=== PATIENT | male | born 1990 | race Caucasian/White ===

== ENCOUNTER 2022-02-02 15:37 | Emergency (ER) | payer OTHER, SELFPAY ==
--- NOTE | ~2022-02-02 | XR_ITS ---
EXAMINATION: XR LUMBOSACRAL SPINE CLINICAL INFORMATION: Pain COMPARISON: None TECHNIQUE: Three views of the lumbosacral spine. FINDINGS: The vertebral bodies and posterior elements are normal. The disc spaces are preserved and the vertebral alignment is normal. The paraspinal soft tissues are normal. XR/XR lumbar spine 2-3V IMPRESSION: Unremarkable examination.
[2022-02-02 15:54] VITALS: BP 136/73; PULSE 69; RESP 16; TEMP 36.6; O2SAT 98; BMI 28.0
--- NOTE | 2022-02-02 18:04 | ED.BACK ---
HPI - Back Pain/Injury General Chief Complaint: Back Pain/Injury Stated Complaint: back pain Time Seen by Provider: 02/02/22 18:04 Source: patient Mode of arrival: ambulatory Limitations: no limitations History of Present Illness HPI Narrative: 31 y/o female with history of low back pain, history of slipped discs in his low back who presents to the ER with 8 days of lower back pain, left more than right. He states the pain started after lifting at have a 5 gal bucket of vanc while he was at work and tipping it into a machine. The pain is in the left lower back, radiates into the left buttock and down the 1st portion of the left leg. It is worse with bending and movement. He has been taking ibuprofen and using icy Hot with minimal relief. He reports a history of similar pain a few years ago that was due to a slipped disc. He states he got a shot of the medication and some muscle relaxers and improved after few days of rest. He denies any numbness or tingling in his legs. No weakness. No bowel or bladder incontinence. MD elicited complaint: back pain Pertinent past history: prior back pain Onset (ago): day(s) (8) Timing: constant Severity: moderate Pain scale (0-10): 6 Similar Symptoms Previously: Yes Quality: aching and spasming Location: left lower back Radiation: buttocks and left upper leg Exacerbating factors: movement and walking Relieving factors: immobilization and sitting upright Context: while lifting and turning/twisting Associated symptoms: denies other symptoms Treatments prior to arrival: NSAIDS Work related injury: Yes Related Data Previous Rx's Medication Instructions Recorded cyclobenzaprine 10 mg tablet 10 mg PO TID PRN #14 tab 02/02/22 naproxen 500 mg tablet 500 mg PO BID PRN #20 tab 02/02/22 Allergies Allergy/AdvReac Type Severity Reaction Status Date / Time No Known Allergies Allergy Verified 02/02/22 15:57 Review of Systems Review of Systems: Constitutional: No Fever, No Chills Cardiovascular: No Chest Pain, No SOB Gastrointestinal: No Nausea, No Vomiting, No abdominal Pain Genitourinary: No Dysuria, No Urinary Frequency, No Hematuria Musculoskeletal: + joint pain, + Myalgias Skin: No Skin Lesions, No rash Neuro: No Weakness, No Numbness Psych: No Anxiety/Panic, No Depression Heme/Lymph: No Lymphadenopathy PMFSH Past Medical History Medical History (Updated 02/02/22 @ 18:25 by ROBERTO Jonas) No known health problems Social History Social History Advance Directives: No Advance Directives Information Provided: No Physical Exam Vital Signs: Vital Signs: Last Vital Signs Temp 97.9 F 02/02/22 15:54 Pulse 69 02/02/22 15:54 Resp 16 02/02/22 15:54 BP 136/73 02/02/22 15:54 Pulse Ox 98 02/02/22 15:54 BMI result Body Mass Index 28.0 Appearance: Alert. Oriented X3. No acute distress. HEENT: Normal external inspection Neck: Normal inspection. Neck supple. CVS: Normal heart rate and rhythm. Pulses normal. Respiratory: No respiratory distress. Breath sounds normal. Back: Normal inspection, tenderness of the soft tissues of the upper, middle, lower lumbar areas with palpable spasm. No midline tenderness. Positive straight leg raise test on the right. Positive SI joint tenderness Skin: Skin warm and dry. Normal skin color. Normal skin turgor. No rashes. Extremities: No lower extremity edema. Neuro: Oriented X 3. No motor deficit. No sensory deficit. Slow gait slow but steady Course Course Course Narrative: 31 y/o male with history of low back pain presents to the ER with 8 days of worsening LBP. No red flag symptoms of LBP. Will plan to start muscle relaxers and naproxen. Work note provided per request with limits on heavy lifting for the next week to allow patient to recover. He will follow up with for connection for release back to work. Critical Care Time Critical Care Time Critical Care Time: No Discharge Plan Discharge Clinical Impression: Low back pain Patient Disposition: Home, Self-Care Instructions: Acute Low Back Pain (ED), Lower Back Exercises (ED) Additional Instructions: No bending, lifting or twisting. Use ice several times per day for 20 minutes at a time for the next 48 hours and then change to heat. Take medications as prescribed to help with pain and discomfort. Follow up with your Primary Care Doctor this week. If your pain worsens, if you develop new numbness, tingling, weakness, loss of function or incontinence call 911 or come back to the ER right away for evaluation. Prescriptions: New cyclobenzaprine 10 mg tablet 10 mg PO TID PRN (Reason: muscle spasm) Qty: 14 0RF naproxen 500 mg tablet 500 mg PO BID PRN (Reason: pain) Qty: 20 0RF Referrals: [facility] [Provider Group] - 1 week (Follow-up low back pain) Stand Alone Forms: Work/School Release
[2022-02-02] MEDS: Ketorolac Tromethamine 30 MG/ML VIAL IM (18:39)
== END 2022-02-02 18:44 | disposition home or self-care (01) ==
PROVIDERS: Emergency Provider Emergency Medicine
DX: M54.50 Low back pain, unspecified (principal); Z79.899 Other long term (current) drug therapy
CPT/HCPCS: 72100; 96372; 99284; J1885

== ENCOUNTER 2022-02-06 11:47 | Emergency (ER) | payer OTHER, SELFPAY ==
[2022-02-06 12:29] VITALS: BP 133/78; PULSE 78; RESP 17; TEMP 36.6; O2SAT 98; BMI 28.1
[2022-02-06] MEDS: Ketorolac Tromethamine 30 MG/ML VIAL IM (12:47)
[2022-02-06] MEDS: oxyCODONE HCl Immed Release 5 MG TABLET PO (12:47)
[2022-02-06] MEDS: Ondansetron ODT 4 MG TAB.RAPDIS TRANSLINGU (12:48)
--- NOTE | 2022-02-06 12:56 | ED_ITS ---
HPI - Back Pain/Injury General Chief Complaint: Back Pain/Injury Stated Complaint: Back pain Time Seen by Provider: 02/06/22 12:25 Source: patient Mode of arrival: ambulatory History of Present Illness HPI Narrative: 31-year-old male with a past medical history of low back pain, herniated disc, presenting to the ED complaining of about 1 week of low back pain > right radiating down bilateral lower extremities. Admits does a lot of heavy lifting at work, however denies direct injury/trauma or fall. Admits was evaluated in our ED on 02/02/2022, had x-rays are unremarkable, taking Flexeril/naproxen without relief, also saw a chiropractor who recommended an MRI. Reports pain worse with bending/ambulation. Reports associated paresthesias down RLE. Denies weakness, urinary incontinence, urinary retention, fever MD elicited complaint: back pain Onset (ago): week(s) Related Data Previous Rx's Medication Instructions Recorded cyclobenzaprine 10 mg tablet 10 mg PO TID PRN #14 tab 02/02/22 naproxen 500 mg tablet 500 mg PO BID PRN #20 tab 02/02/22 hydrocodone 5 mg-acetaminophen 325 1 tab PO Q8H PRN 3 Days #9 tab 02/06/22 mg tablet lidocaine 5 % topical patch 1 patch TOPICAL DAILY PRN #30 ea 02/06/22 (Lidoderm) MDD remove after 12 hours prednisone 20 mg tablet 40 mg PO DAILY 5 Days #10 tab 02/06/22 Allergies Allergy/AdvReac Type Severity Reaction Status Date / Time No Known Allergies Allergy Verified 02/02/22 15:57 Review of Systems Review of Systems: Constitutional: No Fever, No Chills ENT/Mouth: No Ear Pain, No Nasal Congestion, No sore throat, No Rhinorrhea, No Swallowing Difficulty Cardiovascular: No Chest Pain, No SOB Respiratory: No Cough, No Sputum, No Wheezing Gastrointestinal: No Nausea, No Vomiting, No Diarrhea, No Constipation, No Abdominal pain Genitourinary:, No Dysuria, No Urinary Frequency, No Hematuria, No Urinary Incontinence/retention, No Urgency, No Flank Pain Musculoskeletal: + joint pain, No Myalgias, No Joint Swelling Skin: No Skin Lesions, No rash Neuro: No Weakness, No Numbness, + Paresthesias Yes all other systems are reviewed and are negative Neurologic: Denies Sensory deficit (Neuro) PMFSH Past Medical History Attestation statement: The following information was validated with the patient. Medical History No known health problems Social History Social History Advance Directives: No Physical Exam Vital Signs: Vital Signs: Last Vital Signs Temp 97.8 F 02/06/22 12:29 Pulse 78 02/06/22 12:29 Resp 17 02/06/22 12:29 BP 133/78 02/06/22 12:29 Pulse Ox 98 02/06/22 12:29 BMI result Body Mass Index 28.1 Const: General: cooperative, healthy appearing and no acute distress Orientation/consciousness: patient oriented x3 Limitations: no limitations HEENT: Head: Yes normal to inspection and Yes atraumatic Ears: hearing grossly normal bilaterally General nose exam: Normal external nose present Face and sinus: Yes normal facial exam Eyes: General: appearance normal, both eyes and all related structures EOM: EOMs intact bilaterally Neck: Neck: Yes normal visual inspection and Yes no meningeal signs Resp: Effort & Inspection: normal respiratory effort and no respiratory distress Cardio: Rate: regular rate Heart sounds: S1 normal heart sound present and S2 normal heart sound present Peripheral pulses: dorsalis pedis present : General: Yes no CVA tenderness Back/Spine/Pelvis: Other: No midline thoracic/lumbar spinous tenderness/step-off or deformity. + bilateral lower lumbar paraspinal and right-sided lumbar MSK tenderness to palpation reproducing subjective complaint. Visible muscle spasming/mild swelling to lumbar region Back: no CVA tenderness Skin: Rashes: no rashes Wounds: no wounds Neuro: Other: Strength intact throughout. Ambulating with steady gait. No saddle anesthesia. General: patient oriented x3, gait normal, tone normal, moves all extremities, no meningeal signs and no focal motor deficits Gait exam (Neuro): Normal gait present Motor exam (neuro): 5/5 motor strength present throughout Sensory Exam: No Sensory deficit (Neuro) Extrem: General: Yes normal to inspection Course Course Course Narrative: -patient reports symptomatic improvement after p.o. oxycodone, IM Toradol, & PO Flexeril MDM - Back Pain/Injury MDM Narrative Medical decision making narrative: 31-year-old male with a past medical history of low back pain, herniated disc, presenting to the ED complaining of about 1 week of low back pain > right radiating down bilateral lower extremities. On exam vital signs stable, NAD/nontoxic, no midline spinous tenderness throat, no red flag symptoms, concern for herniated disc vs MSK pain/spasming versus strain. Low concern for cauda equina/cord compression or epidural abscess Discussed with patient he needs to establish care with PCP/neuro surgery and likely needs MRI outpatient however cannot get done emergently today Will give sx tx and discussed worrisome signs and symptoms and strict return precautions Differential Diagnosis Differential diagnosis: Likely lumbar radiculopathy, sciatica and strain of lumbar region Medical Records Attestation: I reviewed the patient's medical records. Lab Data Attestation: I reviewed the patient's lab results. Discharge Plan Discharge Clinical Impression: Back pain Patient Disposition: Home, Self-Care Instructions: Acute Low Back Pain (ED) Additional Instructions: [facility] [address] [place] [address] [phone] Continue taking previously prescribed naproxen and Flexeril. In addition [place] is an opiate pain medication, take only when pain is severe for the next 3 days. Be aware [place] has Tylenol mixed in do not exceed 4 g of Tylenol in 1 day Additionally prednisone is a steroid which will help with swelling You need to establish care with a primary care doctor as well as Neurosurgery. You likely need an MRI. Lidoderm patches are numbing patches, apply to painful area In addition take Tylenol at home If symptoms persist or worsen, pain becomes unbearable, you developed urinary retention or incontinence, or weakness return to the ED Prescriptions: New hydrocodone-acetaminophen 5-325 mg tablet 1 tab PO Q8H PRN (Reason: pain, severe) 3 Days Qty: 9 0RF prednisone 20 mg tablet 40 mg PO DAILY 5 Days Qty: 10 0RF lidocaine [Lidoderm] 5 % adhesive patch,medicated 1 patch topical DAILY MDD remove after 12 hours PRN (Reason: pain) Qty: 30 0RF Rx Instructions: leave on most painful area for up to 12 hrs No Action cyclobenzaprine 10 mg tablet 10 mg PO TID PRN (Reason: muscle spasm) Qty: 14 0RF naproxen 500 mg tablet 500 mg PO BID PRN (Reason: pain) Qty: 20 0RF Referrals: Lebron Wolff MD [Physician] - 2 days Amberly Poe MD [Physician] - Stand Alone Forms: Work/School Release
--- NOTE | 2022-02-06 13:29 | PC.NURSE ---
PT MEDICATED WITH 5MG OXYCODONE AND TORADOL 30MG FOR C/O 05/26 LEFT BACK/SIDE PAIN. AUTHOR WENT TO REVIEW DISCHARGE PAPERWORK WITH PT, AND AT BEDSIDE, PT STATED TO AUTHOR I CAN'T LIFT MY LEG, THIS FEELS LIKE IT'S GETTING WORSE , PT INDICATING LEFT LEG BEING DIFFICULT TO MOVE. ROBERTO BARRIGA AWARE. TM
[2022-02-06] MEDS: Cyclobenzaprine HCl 10 MG TABLET PO (13:42)
== END 2022-02-06 14:48 | disposition home or self-care (01) ==
PROVIDERS: Emergency Provider Emergency Medicine
DX: M54.50 Low back pain, unspecified (principal); M79.605 Pain in left leg; M79.604 Pain in right leg; R20.2 Paresthesia of skin; Z79.899 Other long term (current) drug therapy
CPT/HCPCS: 96372; 99283; 99284; J1885

== ENCOUNTER → 2022-02-12 09:35 | Outpatient (BNVA) | payer OTHER, SELFPAY | PROVIDERS: Visit Provider Internal Medicine | DX: M54.9 Dorsalgia, unspecified (principal); M79.662 Pain in left lower leg; M79.661 Pain in right lower leg | CPT/HCPCS: 99203 ==

== ENCOUNTER → 2022-02-16 11:25 | Outpatient (BNVA) | payer OTHER, SELFPAY | PROVIDERS: Visit Provider Internal Medicine | DX: M54.50 Low back pain, unspecified (principal) | CPT/HCPCS: 99213 ==

== ENCOUNTER → 2022-02-22 09:46 | Outpatient (BNVA) | payer OTHER, SELFPAY | PROVIDERS: Visit Provider Internal Medicine | DX: M54.9 Dorsalgia, unspecified (principal); M79.605 Pain in left leg | CPT/HCPCS: 99213 ==

== ENCOUNTER 2022-02-22 19:05 | Outpatient (REF) | payer OTHER, SELFPAY ==
--- NOTE | ~2022-02-22 | MR_ITS ---
EXAMINATION: MR LUMBAR SPINE WITHOUT CONTRAST CLINICAL INFORMATION: 31-year-old with low back and bilateral leg pain. Pushing injury. COMPARISON: None TECHNIQUE: MRI of the lumbar spine was obtained using routine sequences without contrast. FINDINGS: Coronal Alignment: Normal. Sagittal Alignment: Straightening of the lumbar spine noted in the sagittal plane. No spondylolisthesis or spondylolysis. Lumbosacral Junction: Normal. Five nonrib-bearing lumbar vertebral bodies. Vertebral Bodies: Normal height. Disc Spaces and Endplates: Intervertebral disc space heights and signal are well maintained throughout the lumbar spine. Spinal Canal: No abnormal developmental findings. Bone Marrow: No significant marrow-replacing process or bone marrow edema. Conus Medullaris: Terminates at L1. Morphology and signal is normal. Intradural Nerve Roots: Within normal limits. L5-S1: Mild broad-based central disc herniation with mild indentation of the ventral thecal sac without neural impingement. Disc herniation contacts the origins of the S1 nerve root sleeves bilaterally. No significant facet arthrosis, canal or neural foraminal stenosis. L4-L5: Minor annular bulging with no significant canal or neural foraminal stenosis. Minor facet arthrosis noted on the left. L3-L4: Minor annular bulging. No facet arthrosis, canal or neural foraminal stenosis. L2-L3: Normal disc contour. No facet arthrosis, canal or neural foraminal stenosis. L1-L2: Normal disc contour. No facet arthrosis, canal or neural foraminal stenosis. Paraspinal/Retroperitoneal: The paravertebral soft tissues appear unremarkable. MR/MR lumbar spine wo con IMPRESSION: 1. Broad-based central disc protrusion at L5-S1 which contacts the origins of the S1 nerve root sleeves bilaterally without nerve root compression or displacement and no significant canal or neural foraminal stenosis. 2. Minor annular bulging at L4-L5 and L3-L4 with mild facet arthrosis on the left at L4-L5 without canal or neural foraminal stenosis. 3. Straightening of the lumbar spine noted.
== END 2022-02-22 19:06 | disposition home or self-care (01) ==
LOC: HO.MRI 19:05
PROVIDERS: Visit Provider Internal Medicine
DX: M54.50 Low back pain, unspecified (principal); M79.604 Pain in right leg; M79.605 Pain in left leg
CPT/HCPCS: 72148

== ENCOUNTER → 2022-03-01 13:03 | Outpatient (BNVA) | payer OTHER, SELFPAY | PROVIDERS: Visit Provider Internal Medicine | DX: M51.27 Other intervertebral disc displacement, lumbosacral region (principal); M79.605 Pain in left leg; M79.604 Pain in right leg | CPT/HCPCS: 99213 ==

== ENCOUNTER 2022-03-05 15:42 | Outpatient (REF) | payer OTHER, SELFPAY ==
[2022-03-05 15:45] LABS: MANUAL DIFF FLAG NO
[2022-03-05 15:55] LABS: Basophils Absolute Auto 0.1 X10*3/uL (0.0-0.2); Basophils Percent Auto 0.9 % (0-2); Eosinophils Absolute Auto 0.1 X10*3/uL (0.0-0.4); Eosinophils Percent Auto 2.4 % (0-4); Hematocrit 47.4 % (42.0-52.0); Hemoglobin 17.2 g/dl (14.0-18.0); Imm Gran Abs Auto 0.02 X10*3/uL (0.00-0.03); Imm Gran Pct Auto 0.3 % (0.0-0.4); Lymphocytes Absolute Auto 2.5 X10*3/uL (1.2-4.9); Lymphocytes Percent Auto 43.2 % (20-40); Mean Corpuscular HGB Conc 36.3 g/dl (31.0-36.0); Mean Corpuscular Hemoglobin 31.4 pg (27.0-33.0); Mean Corpuscular Volume 86.7 fL (80.0-98.0); Mean Platelet Volume 10.9 fL (9.4-12.4); Monocytes Absolute Auto 0.6 X10*3/uL (0.1-1.2); Monocytes Percent Auto 9.9 % (2-11); Neutrophils Absolute Auto 2.6 x10*3/uL (2.0-8.3); Neutrophils Percent Auto 43.3 % (45-73); Platelet Count 243 X10*3/uL (160-400); Red Blood Count 5.47 X10*6/uL (4.60-5.80); White Blood Count 5.9 X10*3/uL (4.8-10.8)
[2022-03-05 16:07] LABS: Alanine Aminotransferase 68 U/L (0-40); Albumin Level 4.6 g/dL (3.5-5.0); Alkaline Phosphatase 61 U/L (39-117); Anion Gap 12 (12-20); Aspartate Amino Transferase 32 U/L (5-37); Bilirubin Total 0.7 mg/dL (0.0-1.0); Blood Urea Nitrogen 13 mg/dL (9-16); Calcium 9.6 mg/dL (8.4-10.2); Carbon Dioxide 27 mmol/L (22-29); Chloride 106 mmol/L (96-108); Cholesterol 235 mg/dL; Estimated Glomerular Filt Rate > 60; Glucose Fasting 113 mg/dL (60-99); HDL Cholesterol 55 mg/dL; LDL Cholesterol Calculated 137 mg/dl; Potassium 3.9 mmol/L (3.3-5.1); Sodium 141 mmol/L (135-145); Total Protein 7.6 g/dL (6.5-8.0); Triglycerides 215 mg/dL
== END 2022-03-05 15:43 | disposition home or self-care (01) ==
LOC: HO.LNP 15:42
PROVIDERS: Visit Provider Internal Medicine
DX: Z00.00 Encounter for general adult medical examination without abnormal findings (principal)
CPT/HCPCS: 80053; 80061; 85025

== ENCOUNTER → 2022-03-16 14:35 | Outpatient (BNVA) | payer OTHER, SELFPAY | PROVIDERS: Visit Provider Internal Medicine | DX: M79.662 Pain in left lower leg (principal) | CPT/HCPCS: 99213 ==

== ENCOUNTER → 2022-04-16 08:47 | Outpatient (BNVA) | payer OTHER, SELFPAY | PROVIDERS: Visit Provider Internal Medicine | DX: M51.27 Other intervertebral disc displacement, lumbosacral region (principal) | CPT/HCPCS: 99213 ==

== ENCOUNTER → 2022-05-03 08:50 | Outpatient (BNVA) | payer OTHER, SELFPAY | PROVIDERS: Visit Provider Internal Medicine | DX: M51.16 Intervertebral disc disorders with radiculopathy, lumbar region (principal) | CPT/HCPCS: 99213 ==

== ENCOUNTER 2022-05-06 10:43 | Outpatient (REF) | payer OTHER, SELFPAY ==
[2022-05-06 10:46] LABS: MANUAL DIFF FLAG NO
[2022-05-06 11:15] LABS: Basophils Percent Auto 0.5 % (0-2); Eosinophils Absolute Auto 0.1 X10*3/uL (0.0-0.4); Eosinophils Percent Auto 0.6 % (0-4); Hematocrit 47.5 % (42.0-52.0); Hemoglobin 16.4 g/dl (14.0-18.0); Imm Gran Abs Auto 0.04 X10*3/uL (0.00-0.03); Imm Gran Pct Auto 0.5 % (0.0-0.4); Lymphocytes Absolute Auto 3.5 X10*3/uL (1.2-4.9); Lymphocytes Percent Auto 39.8 % (20-40); Mean Corpuscular HGB Conc 34.5 g/dl (31.0-36.0); Mean Corpuscular Hemoglobin 31.7 pg (27.0-33.0); Mean Corpuscular Volume 91.7 fL (80.0-98.0); Mean Platelet Volume 11.5 fL (9.4-12.4); Monocytes Absolute Auto 0.6 X10*3/uL (0.1-1.2); Monocytes Percent Auto 7.4 % (2-11); Neutrophils Absolute Auto 4.5 x10*3/uL (2.0-8.3); Neutrophils Percent Auto 51.2 % (45-73); Platelet Count 221 X10*3/uL (160-400); Red Blood Count 5.18 X10*6/uL (4.60-5.80); Red Cell Distribution Width 13.2 % (11.0-16.0); White Blood Count 8.7 X10*3/uL (4.8-10.8)
== END 2022-05-06 10:44 | disposition home or self-care (01) ==
LOC: HO.LNP 10:43
PROVIDERS: Visit Provider Internal Medicine
DX: D72.820 Lymphocytosis (symptomatic) (principal)
CPT/HCPCS: 85025

== ENCOUNTER → 2022-06-01 09:11 | Outpatient (BNVA) | payer OTHER, SELFPAY | PROVIDERS: Visit Provider Internal Medicine | DX: M51.16 Intervertebral disc disorders with radiculopathy, lumbar region (principal) | CPT/HCPCS: 99213 ==

== ENCOUNTER → 2022-06-22 10:41 | Outpatient (BNVA) | payer OTHER, SELFPAY | PROVIDERS: Visit Provider Internal Medicine | DX: M51.17 Intervertebral disc disorders with radiculopathy, lumbosacral region (principal) | CPT/HCPCS: 99213 ==

== ENCOUNTER → 2022-07-12 09:58 | Outpatient (BNVA) | payer OTHER, SELFPAY | PROVIDERS: Visit Provider Internal Medicine | DX: M51.27 Other intervertebral disc displacement, lumbosacral region (principal) | CPT/HCPCS: 99213 ==

== ENCOUNTER → 2022-08-02 09:29 | Outpatient (BNVA) | payer OTHER, SELFPAY | PROVIDERS: Visit Provider Internal Medicine | DX: M51.27 Other intervertebral disc displacement, lumbosacral region (principal) | CPT/HCPCS: 99213 ==

== ENCOUNTER → 2022-08-19 09:30 | Outpatient (BNVA) | payer OTHER, SELFPAY | PROVIDERS: Visit Provider Internal Medicine | DX: M51.27 Other intervertebral disc displacement, lumbosacral region (principal) | CPT/HCPCS: 99213 ==

== ENCOUNTER → 2022-09-13 09:50 | Outpatient (BNVA) | payer OTHER, SELFPAY | PROVIDERS: Visit Provider Internal Medicine | DX: M51.27 Other intervertebral disc displacement, lumbosacral region (principal) | CPT/HCPCS: 99213 ==

== ENCOUNTER → 2022-09-30 10:18 | Outpatient (BNVA) | payer OTHER, SELFPAY | PROVIDERS: Visit Provider Internal Medicine | DX: M54.9 Dorsalgia, unspecified (principal); M51.36 Other intervertebral disc degeneration, lumbar region | CPT/HCPCS: 99213 ==

== ENCOUNTER → 2022-10-26 09:49 | Outpatient (BNVA) | payer OTHER, SELFPAY | PROVIDERS: Visit Provider Internal Medicine | DX: M54.9 Dorsalgia, unspecified (principal); M51.36 Other intervertebral disc degeneration, lumbar region | CPT/HCPCS: 99213 ==

== ENCOUNTER → 2022-11-22 11:37 | Outpatient (BNVA) | payer OTHER, SELFPAY | PROVIDERS: Visit Provider Internal Medicine | DX: M54.50 Low back pain, unspecified (principal) | CPT/HCPCS: 99213 ==

== ENCOUNTER → 2022-12-13 10:25 | Outpatient (BNVA) | payer OTHER, SELFPAY | PROVIDERS: Visit Provider Internal Medicine | DX: M54.50 Low back pain, unspecified (principal); K30 Functional dyspepsia | CPT/HCPCS: 99213 ==

== ENCOUNTER → 2022-12-28 12:57 | Outpatient (BNVA) | payer OTHER, SELFPAY | PROVIDERS: Visit Provider Internal Medicine | DX: K30 Functional dyspepsia (principal); M51.26 Other intervertebral disc displacement, lumbar region | CPT/HCPCS: 99213 ==

== ENCOUNTER → 2023-01-18 12:54 | Outpatient (BNVA) | payer OTHER, SELFPAY | PROVIDERS: Visit Provider Internal Medicine | DX: M46.1 Sacroiliitis, not elsewhere classified (principal) | CPT/HCPCS: 99213 ==

== ENCOUNTER 2023-01-25 09:20 | Outpatient (REF) | payer OTHER, SELFPAY ==
--- NOTE | ~2023-01-25 | FL_ITS ---
PROCEDURE: XR FLUOROSCOPY UPPER GI WITH AIR CLINICAL INFORMATION: Reflux disease with esophagitis. COMPARISON: None available. TECHNIQUE: Routine upper GI air-contrast study was performed in upright and lying position. FINDINGS: Following oral administration of thick barium and effervescent granules there is normal propagation of bolus from the oral cavity through the pharynx, esophagus into stomach without any evidence of obstruction, narrowing or extrinsic compression. On placing patient supine and prone lying the course, caliber and peristalsis of the stomach, duodenal bulb and the sweep is normal. The mucosal pattern of the stomach and the duodenum is normal. There is no gastroesophageal reflux or hiatal hernia. FLUOROSCOPY TIME: 2.0 minutes DOSE AREA PRODUCT: 54.055 uGy-m2 (microgray-meter squared) FL/FL upper GI w air IMPRESSION: Unremarkable upper GI examination.
== END 2023-01-25 09:21 | disposition home or self-care (01) ==
LOC: HO.XRAY 09:20
PROVIDERS: Visit Provider Internal Medicine
DX: K21.00 Gastro-esophageal reflux disease with esophagitis, without bleeding (principal)
CPT/HCPCS: 74246

== ENCOUNTER → 2023-02-01 13:19 | Outpatient (BNVA) | payer OTHER, SELFPAY | PROVIDERS: PCP Internal Medicine; Visit Provider Internal Medicine | DX: M53.3 Sacrococcygeal disorders, not elsewhere classified (principal) | CPT/HCPCS: 99213 ==

== ENCOUNTER 2023-02-17 17:44 | Outpatient (REF) | payer OTHER, SELFPAY ==
--- NOTE | ~2023-02-17 | MR_ITS ---
EXAMINATION: MR PELVIS WITHOUT CONTRAST CLINICAL INFORMATION: Pain over SI joints bilaterally. COMPARISON: None available. TECHNIQUE: MRI of the pelvis is performed without contrast in a high-field MRI scanner. Imaging protocol tailored to the evaluation of the sacroiliac joints. FINDINGS: Bone/cartilage: Sacroiliac joints: Normal. No degenerative change or inflammatory change. No edema. No fracture. No erosions. Hip joints are normal. Symphysis pubis normal. Remaining bones and joints normal. Muscles/tendons: Normal. Subcutaneous soft tissues: Normal. Neurovascular structures: Normal. Ligaments and capsular structures: Normal. Lymph nodes: Normal. MR/MR pelvis wo con IMPRESSION: Normal MRI of the pelvis tailored to the sacroiliac joints.
== END 2023-02-17 17:45 | disposition home or self-care (01) ==
LOC: HO.MRI 17:44
PROVIDERS: PCP Internal Medicine; Visit Provider Internal Medicine
DX: M53.3 Sacrococcygeal disorders, not elsewhere classified (principal)
CPT/HCPCS: 72195

== ENCOUNTER → 2023-02-25 13:05 | Outpatient (BNVA) | payer OTHER, SELFPAY | PROVIDERS: PCP Internal Medicine; Visit Provider Internal Medicine | DX: M54.40 Lumbago with sciatica, unspecified side (principal) | CPT/HCPCS: 99213 ==

== ENCOUNTER 2023-02-28 10:40 | Outpatient (REF) | payer OTHER, SELFPAY ==
[2023-02-28 10:43] LABS: MANUAL DIFF FLAG NO
[2023-02-28 11:06] LABS: Basophils Percent Auto 0.4 % (0-2); Eosinophils Absolute Auto 0.2 X10*3/uL (0.0-0.4); Eosinophils Percent Auto 2.6 % (0-4); Hematocrit 49.6 % (42.0-52.0); Hemoglobin 17.5 g/dl (14.0-18.0); Imm Gran Abs Auto 0.02 X10*3/uL (0.00-0.03); Imm Gran Pct Auto 0.3 % (0.0-0.4); Lymphocytes Absolute Auto 3.2 X10*3/uL (1.2-4.9); Lymphocytes Percent Auto 46.5 % (20-40); Mean Corpuscular HGB Conc 35.3 g/dl (31.0-36.0); Mean Corpuscular Hemoglobin 31.1 pg (27.0-33.0); Mean Corpuscular Volume 88.1 fL (80.0-98.0); Mean Platelet Volume 11.1 fL (9.4-12.4); Monocytes Absolute Auto 0.6 X10*3/uL (0.1-1.2); Monocytes Percent Auto 9.3 % (2-11); Neutrophils Absolute Auto 2.8 x10*3/uL (2.0-8.3); Neutrophils Percent Auto 40.9 % (45-73); Platelet Count 222 X10*3/uL (160-400); Red Blood Count 5.63 X10*6/uL (4.60-5.80); Red Cell Distribution Width 12.6 % (11.0-16.0); White Blood Count 6.9 X10*3/uL (4.8-10.8)
[2023-02-28 11:08] LABS: Appearance Urine Clear; Color Urine Yellow; Glucose Urine UA Negative (Negative); Leukocyte Esterase Urine Negative (Negative); Nitrite Urine Negative (Negative); Urine Blood Negative (Negative); Urine Ketones Negative (Negative); Urine Protein Negative (Neg-Trace)
[2023-02-28 11:15] LABS: Alanine Aminotransferase 73 U/L (0-40); Albumin Level 4.4 g/dL (3.5-5.0); Alkaline Phosphatase 55 U/L (39-117); Anion Gap 10 (12-20); Aspartate Amino Transferase 32 U/L (5-37); Bacteria Urine None Seen (None Seen); Bilirubin Total 1.2 mg/dL (0.0-1.0); Blood Urea Nitrogen 14 mg/dL (9-16); Calcium 9.6 mg/dL (8.4-10.2); Carbon Dioxide 28 mmol/L (22-29); Chloride 106 mmol/L (96-108); Cholesterol 236 mg/dL; Estimated Glomerular Filt Rate > 60; Glucose Fasting 112 mg/dL (60-99); HDL Cholesterol 46 mg/dL; Hyaline Casts Urine 0-2 /LPF (0-2); LDL Cholesterol Calculated 159 mg/dl; Potassium 4.2 mmol/L (3.3-5.1); RBC Urine 0-2 /HPF (0-2); Sodium 140 mmol/L (135-145); Squamous Epithelial Cell Urine 0-2 /HPF (0-2); Total Protein 6.8 g/dL (6.5-8.0); Triglycerides 156 mg/dL; WBC Urine 0-5 /HPF (0-5)
== END 2023-02-28 10:41 | disposition home or self-care (01) ==
LOC: HO.LNP 10:40
PROVIDERS: Visit Provider Internal Medicine
DX: Z00.00 Encounter for general adult medical examination without abnormal findings (principal); D72.820 Lymphocytosis (symptomatic)
CPT/HCPCS: 80053; 80061; 81001; 85025

== ENCOUNTER → 2023-03-28 13:26 | Outpatient (BNVA) | payer OTHER, SELFPAY | PROVIDERS: PCP Internal Medicine; Visit Provider Internal Medicine | DX: M54.50 Low back pain, unspecified (principal) | CPT/HCPCS: 99213 ==

== ENCOUNTER → 2023-05-05 12:56 | Outpatient (BNVA) | payer OTHER, SELFPAY | PROVIDERS: PCP Internal Medicine; Visit Provider Internal Medicine | DX: M54.42 Lumbago with sciatica, left side (principal) | CPT/HCPCS: 99213 ==

== ENCOUNTER → 2023-06-17 12:50 | Outpatient (BNVA) | payer OTHER, SELFPAY | PROVIDERS: PCP Internal Medicine; Visit Provider Internal Medicine | DX: M54.50 Low back pain, unspecified (principal) | CPT/HCPCS: 99213 ==

== ENCOUNTER → 2023-06-30 14:40 | Outpatient (BNVA) | payer OTHER, SELFPAY | PROVIDERS: PCP Internal Medicine; Visit Provider Internal Medicine | DX: M54.40 Lumbago with sciatica, unspecified side (principal) | CPT/HCPCS: 99213 ==

== ENCOUNTER → 2023-07-18 10:18 | Outpatient (BNVA) | payer OTHER, SELFPAY | PROVIDERS: PCP Internal Medicine; Visit Provider Internal Medicine | DX: M51.17 Intervertebral disc disorders with radiculopathy, lumbosacral region (principal); M54.9 Dorsalgia, unspecified | CPT/HCPCS: 99213 ==

== ENCOUNTER → 2023-08-12 09:52 | Outpatient (BNVA) | payer OTHER, SELFPAY | PROVIDERS: PCP Internal Medicine; Visit Provider Internal Medicine | DX: M51.37 Other intervertebral disc degeneration, lumbosacral region (principal) | CPT/HCPCS: 99213 ==

== ENCOUNTER → 2023-09-02 10:02 | Outpatient (BNVA) | payer OTHER, SELFPAY | PROVIDERS: PCP Internal Medicine; Visit Provider Internal Medicine | DX: M51.37 Other intervertebral disc degeneration, lumbosacral region (principal); M54.9 Dorsalgia, unspecified | CPT/HCPCS: 99213 ==

== ENCOUNTER → 2023-09-30 09:15 | Outpatient (BNVA) | payer OTHER, SELFPAY | PROVIDERS: PCP Internal Medicine; Visit Provider Internal Medicine | DX: M51.27 Other intervertebral disc displacement, lumbosacral region (principal) | CPT/HCPCS: 99213 ==

== ENCOUNTER → 2023-11-18 11:28 | Outpatient (BNVA) | payer OTHER, SELFPAY | PROVIDERS: PCP Internal Medicine; Visit Provider Internal Medicine | DX: S39.012D Strain of muscle, fascia and tendon of lower back, subsequent encounter (principal); X58.XXXD Exposure to other specified factors, subsequent encounter | CPT/HCPCS: 99213 ==

== ENCOUNTER 2024-03-02 11:33 | Outpatient (REF) | payer OTHER, SELFPAY ==
[2024-03-02 11:38] LABS: MANUAL DIFF FLAG NO
[2024-03-02 11:57] LABS: Basophils Absolute Auto 0.1 X10*3/uL (0.0-0.2); Basophils Percent Auto 0.7 % (0-2); Eosinophils Absolute Auto 0.2 X10*3/uL (0.0-0.4); Eosinophils Percent Auto 2.7 % (0-4); Hematocrit 47.7 % (42.0-52.0); Imm Gran Abs Auto 0.02 X10*3/uL (0.00-0.03); Imm Gran Pct Auto 0.3 % (0.0-0.4); Lymphocytes Absolute Auto 3.6 X10*3/uL (1.2-4.9); Lymphocytes Percent Auto 51.6 % (20-40); Mean Corpuscular HGB Conc 35.6 g/dl (31.0-36.0); Mean Corpuscular Hemoglobin 32.1 pg (27.0-33.0); Monocytes Absolute Auto 0.6 X10*3/uL (0.1-1.2); Monocytes Percent Auto 9.2 % (2-11); Neutrophils Absolute Auto 2.5 x10*3/uL (2.0-8.3); Neutrophils Percent Auto 35.5 % (45-73); Platelet Count 233 X10*3/uL (160-400); Red Cell Distribution Width 12.6 % (11.0-16.0); White Blood Count 6.9 X10*3/uL (4.8-10.8)
[2024-03-02 12:07] LABS: Appearance Urine Clear; Color Urine Yellow; Glucose Urine UA Negative (Negative); Leukocyte Esterase Urine Negative (Negative); Nitrite Urine Negative (Negative); PH 5.5 (5.0-9.0); Urine Blood Negative (Negative); Urine Ketones Negative (Negative); Urine Protein Negative (Neg-Trace)
[2024-03-02 12:13] LABS: Bacteria Urine None Seen (None Seen); Hyaline Casts Urine 0-2 /LPF (0-2); RBC Urine 0-2 /HPF (0-2); Squamous Epithelial Cell Urine 0-2 /HPF (0-2); WBC Urine 0-5 /HPF (0-5)
[2024-03-02 12:40] LABS: Alanine Aminotransferase 38 U/L (0-40); Albumin Level 4.3 g/dL (3.5-5.0); Alkaline Phosphatase 51 U/L (39-117); Anion Gap 14 (12-20); Aspartate Amino Transferase 27 U/L (5-37); Blood Urea Nitrogen 16 mg/dL (9-16); Calcium 9.4 mg/dL (8.4-10.2); Carbon Dioxide 24 mmol/L (22-29); Chloride 107 mmol/L (96-108); Cholesterol 213 mg/dL (<200); Estimated Glomerular Filt Rate > 60; Glucose Fasting 103 mg/dL (60-99); HDL Cholesterol 54 mg/dL (>40); LDL Cholesterol Calculated 139 mg/dL (<100); Potassium 3.9 mmol/L (3.3-5.1); Sodium 141 mmol/L (135-145); Total Protein 7.1 g/dL (6.5-8.0); Triglycerides 101 mg/dL (<150)
== END 2024-03-02 11:34 | disposition home or self-care (01) ==
LOC: HO.LNP 11:33
PROVIDERS: Visit Provider Internal Medicine
DX: Z00.00 Encounter for general adult medical examination without abnormal findings (principal); D72.820 Lymphocytosis (symptomatic)
CPT/HCPCS: 80053; 80061; 81001; 85025

== ENCOUNTER 2024-03-08 16:04 | Outpatient (REF) | payer OTHER, SELFPAY ==
[2024-03-08 17:19] LABS: TSH reflex Free T4 0.65 uIU/mL (0.32-4.0)
== END 2024-03-08 16:05 | disposition home or self-care (01) ==
LOC: HO.LNP 16:04
PROVIDERS: Visit Provider Internal Medicine
DX: R53.83 Other fatigue (principal)
CPT/HCPCS: 84443

== ENCOUNTER → 2024-05-25 13:38 | Outpatient (BNVA) | payer OTHER, SELFPAY | PROVIDERS: PCP Internal Medicine; Visit Provider Physician Assistant Medical | DX: L23.9 Allergic contact dermatitis, unspecified cause (principal) | CPT/HCPCS: 99202 ==

== ENCOUNTER → 2024-06-05 15:24 | Outpatient (BNVA) | payer OTHER, SELFPAY | PROVIDERS: PCP Internal Medicine; Visit Provider Registered Nurse | DX: L24.5 Irritant contact dermatitis due to other chemical products (principal) | CPT/HCPCS: 99213 ==

== ENCOUNTER → 2024-06-07 15:04 | Outpatient (BNVA) | payer OTHER, SELFPAY | PROVIDERS: PCP Internal Medicine; Visit Provider Physician Assistant Medical | DX: Z77.098 Contact with and (suspected) exposure to other hazardous, chiefly nonmedicinal, chemicals (principal); L23.9 Allergic contact dermatitis, unspecified cause | CPT/HCPCS: 99213 ==

== ENCOUNTER 2024-06-12 10:48 | Outpatient (REF) | payer OTHER, SELFPAY ==
--- NOTE | ~2024-06-12 | XR_ITS ---
EXAMINATION: XR CHEST 2 VIEWS CLINICAL INFORMATION: Respiratory infection and cough of 2 months' duration. COMPARISON: None. TECHNIQUE: Frontal and lateral views of the chest were obtained. FINDINGS: The heart, great vessels, pulmonary vasculature and mediastinum are normal. The lungs show no focal infiltrate, effusion or pneumothorax. There is no acute osseous abnormality. XR/XR chest 2V IMPRESSION: No active cardiopulmonary disease. Electronically signed by: Saulo Pearl MD 06/29/2024 05:00 PM EDT
== END 2024-06-12 10:49 | disposition home or self-care (01) ==
LOC: HO.XRAY 10:48
PROVIDERS: PCP Internal Medicine; Visit Provider Internal Medicine
DX: J98.8 Other specified respiratory disorders (principal)
CPT/HCPCS: 71046

== ENCOUNTER → 2024-06-14 09:29 | Outpatient (BNVA) | payer OTHER, SELFPAY | PROVIDERS: PCP Internal Medicine; Visit Provider Physician Assistant Medical | DX: L23.9 Allergic contact dermatitis, unspecified cause (principal) | CPT/HCPCS: 99213 ==

== ENCOUNTER → 2024-06-21 15:26 | Outpatient (BNVA) | payer OTHER, SELFPAY | PROVIDERS: PCP Internal Medicine; Visit Provider Physician Assistant Medical | DX: L30.9 Dermatitis, unspecified (principal) | CPT/HCPCS: 99213 ==

== ENCOUNTER → 2024-07-05 15:21 | Outpatient (BNVA) | payer OTHER, SELFPAY | PROVIDERS: PCP Internal Medicine; Visit Provider Physician Assistant Medical | DX: L23.5 Allergic contact dermatitis due to other chemical products (principal); R05.8 Other specified cough | CPT/HCPCS: 99213 ==

== ENCOUNTER → 2024-08-09 09:31 | Outpatient (BNVA) | payer OTHER, SELFPAY | PROVIDERS: PCP Internal Medicine; Visit Provider Physician Assistant Medical | DX: L24.5 Irritant contact dermatitis due to other chemical products (principal) | CPT/HCPCS: 99213 ==

== ENCOUNTER 2025-02-15 13:54 | Outpatient (REF) | payer OTHER, SELFPAY ==
--- NOTE | ~2025-02-15 | XR_ITS ---
EXAMINATION: XR CHEST CLINICAL INFORMATION: PNEUMONIA; chest pain x2 weeks. COMPARISON: 06/12/2024. TECHNIQUE: 2 views of the chest were obtained. FINDINGS: The cardiac, hilar, and mediastinal contours are normal. The lungs are clear bilaterally. There is no pneumothorax or pleural effusion. There is no focal osseous or soft tissue abnormality. XR/XR chest 2V IMPRESSION: Normal chest. Electronically signed by: Migule Diaz MD 02/15/2025 02:25 PM EDT
--- OUTSIDE RECORDS SUMMARY | 2025-02-15 14:13 | XMS_ITS | Patient Health Record ---
Author Organization Lebron Wolff MD Address [address] [place], [place] [phone] Care Team Providers Care Psychiatric Secretary Name Role Phone Lebron Wolff Primary Care Provider Allergies No Known Allergies Results Component Value Reference Range Notes Catia Meraz Reviewed date:03/02/2024 08:07:19 PM Interpretation: Performing Lab:[facility], [address] [place] [phone] Notes/Report: Catia Meraz See Note Specimen held untested for 24 hours; Call to request Chemistry testing. Complete Blood Count Auto Di ff Reviewed date:03/02/2024 08:26:21 PM Interpretation: Performing Lab:[facility], [address] [place] [phone] Notes/Report: White Blood Count 6.9 4.8-10.8 X10*3/uL Red Blood Count 5.30 4.60-5.80 X10*6/uL Hemoglobin 17.0 14.0-18.0 g/dl Hematocrit 47.7 42.0-52.0 % Mean Corpuscular Volume 90.0 80.0-98.0 fL Mean Corpuscular Hemoglobin 32.1 27.0-33.0 pg Mean Corpuscular HGB Conc 35.6 31.0-36.0 g/dl Red Cell Distribution Width 12.6 11.0-16.0 % Platelet Count 233 160-400 X10*3/uL Mean Platelet Volume 11.0 9.4-12.4 fL Neutrophils Percent Auto 35.5 45-73 % Imm Gran Pct Auto 0.3 0.0-0.4 % Lymphocytes Percent Auto 51.6 20-40 % Monocytes Percent Auto 9.2 2-11 % Eosinophils Percent Auto 2.7 0-4 % Basophils Percent Auto 0.7 0-2 % NRBC Pct Auto 0.0 0.0-0.2 /100WBC Neutrophils Absolute Auto 2.5 2.0-8.3 x10*3/u L Imm Gran Abs Auto 0.02 0.00-0.03 X10*3/uL Lymphocytes Absolute Auto 3.6 1.2-4.9 X10*3/u L Monocytes Absolute Auto 0.6 0.1-1.2 X10*3/uL Eosinophils Absolute Auto 0.2 0.0-0.4 X10*3/u L Basophils Absolute Auto 0.1 0.0-0.2 X10*3/uL NRBC Abs Auto 0.000 0.0-0.012 X10*3/uL Comprehensive [place]. Panel Fa st Reviewed date:03/02/2024 08:47:35 PM Interpretation: Performing Lab:[facility], [address] [place] [phone] Notes/Report: Sodium 141 135-145 mmol/L Potassium 3.9 3.3-5.1 mmol/L Chloride 107 96-108 mmol/L Carbon Dioxide 24 22-29 mmol/L Anion Gap 14 12-20 Blood Urea Nitrogen 16 9-16 mg/dL Creatinine 1.18 0.5-1.4 mg/dL Estimated Glomerular Filt Rate > 60 NOTE: For -Mal[place] individuals, multiply the result by 1.210. Chronic Kidney Disease: Estimated GFR < 60 mL/min/1.73m2 Severe Kidney Disease: Estimated GFR < 15 mL/min/1.73m2 Glucose Fasting 103 60-99 mg/dL A fasting glucose from 100-125 mg/dl is considered impaired (pre-diabetes). Calcium 9.4 8.4-10.2 mg/dL Bilirubin Total 1.0 0.0-1.0 mg/dL Aspartate Amino Transferase 27 5-37 U/L Alanine Aminotransferase 38 0-40 U/L Total Protein 7.1 6.5-8.0 g/dL Albumin Level 4.3 3.5-5.0 g/dL Alkaline Phosphatase 51 39-117 U/L Lipid Panel Reviewed date:03/02/2024 08:05:31 PM Interpretation: Performing Lab:[facility], [address] [place] [phone] Notes/Report: Triglycerides 101 <150 mg/dL Desirable Triglyceride: less than 150 mg/dL Borderline High Triglyceride 150-199 mg/dL High Triglyceride: 200-499 mg/dL Very High Triglyceride: greater than or equal to 5OO mg/dL Cholesterol 213 <200 mg/dL Desirable Cholesterol: less than 200 mg/dL Borderline High Cholesterol: 200-239 mg/dL High Cholesterol: greater than 239 mg/dL LDL Cholesterol Calculated 139 <100 mg/dL Desirable LDL: less than 100 mg/dL Near Optimal/Above Optimal LDL: 110-129 mg/dL Borderline High LDL: 130-159 mg/dL High LDL: 160-189 mg/dL Very High LDL: greater than or equal to 190 mg/dL HDL Cholesterol 54 >40 mg/dL Desirable HDL: greater than 40 mg/dL Note: This HDL assay may give artificially low results in patients with liver disease. UA ClnCatch+Micro w/rflx Cul t Reviewed date:03/03/2024 06:28:52 PM Interpretation: Performing Lab:[facility], [address] [place] [phone] Notes/Report: Urine, Clean Catch Color Urine Yellow Appearance Urine Clear PH 5.5 5.0-9.0 Glucose Urine UA Negative Negative mg/dL Urine Blood Negative Negative Specific [place] - Urine 1.020 1.005-1.025 Urine Protein Negative Neg-Trace mg/dL Urine Ketones Negative Negative mg/dL Nitrite Urine Negative Negative Leukocyte Esterase Urine Negative Negative RBC Urine 0-2 0-2 /HPF WBC Urine 0-5 0-5 /HPF Squamous Epithelial Cell Urine 0-2 0-2 /HPF Bacteria Urine None Seen None Seen Hyaline Casts Urine 0-2 0-2 /LPF TSH reflex Free T4 Reviewed date:03/08/2024 07:15:21 PM Interpretation: Performing Lab:[facility], [address] [place] [phone] Notes/Report: TSH reflex Free T4 0.65 0.32-4.0 uIU/mL Hold Gold Reviewed date:03/08/2024 05:06:06 PM Interpretation: Performing Lab:[facility], [address] [place] [phone] Notes/Report: Hold Gold See Note Specimen held untested for 24 hours; Call to request Chemistry testing. XR chest 2V Reviewed date:07/01/2024 05:00:07 PM Interpretation: Performing Lab: Notes/Report: [address] [address] XRay Report Signed Patient: Javier Kirby MR#: [id number] : 1990 Acct:[id number] Age/Sex: 33 / M ADM Date: 06/12/24 Loc: [facility] Attending Dr: Lebron Wolff MD Ordering Physician: Lebron Wolff MD Date of Service: 06/12/24 Procedure(s): XR chest 2V Accession Number(s): [id number] cc: Lebron Wolff MD EXAMINATION: XR CHEST 2 VIEWS CLINICAL INFORMATION: Respiratory infection and cough of 2 months' duration. COMPARISON: None. TECHNIQUE: Frontal and lateral views of the chest were obtained. FINDINGS: The heart, great vessels, pulmonary vasculature and mediastinum are normal. The lungs show no focal infiltrate, effusion or pneumothorax. There is no acute osseous abnormality. XR/XR chest 2V IMPRESSION: No active cardiopulmonary disease. Electronically signed by: Saulo Pearl MD 06/29/2024 05:00 PM EDT Dictated By: Saulo Pearl MD Signed By: <Electronically signed by Saulo Pearl MD in OV> 06/29/24 1700 DD/ 1055 TD/TT: 06/12/24 1124 Fortune Cookie Maker: [address] [address] XRay Report Signed Patient: Javier Kirby MR#: [id number] : 1990 Acct:[id number] Age/Sex: 33 / M ADM Date: 06/12/24 Loc: [facility] Attending Dr: Lebron Wolff MD Ordering Physician: Lebron Wolff MD Date of Service: 06/12/24 Procedure(s): XR tah[address] st 2V Accession Number(s): [id number] cc: Lebron Wolff MD EXAMINATION: XR CHEST 2 VIEWS CLINICAL INFORMATION: Respiratory infectio n and cough of 2 months' duration. COMPARISON: None. TECHNIQUE: Frontal and lateral views of the chest were obtained. FINDINGS: The heart, great vessels, pulmonary vasculature and mediastinum are normal. The lungs sh ow no focal infiltrate, effusion or pneumothorax. There is no acute osseous abnormality. XR/XR chest 2V IMPRESSION: No active cardiopulmonary disease. Electronically kelby d by: Saulo Pearl MD 06/29/2024 05:00 PM EDT RP Dictated By: Constantino Pearl MD Signed By: <Electronically signed by Saulo Pearl MD in OV> 06/29/24 1700 DD/ 1055 TD/TT: 06/12/24 1124 Fortune Cookie Maker: BRYAN Reason For Referral Reason loud snoring Diagnosis 1 Loud snoring (R06.83 ) Referral Organization Lebron Wolff MD Referring Provider First Name Lebron Referring Provider Last Name New Referring Provider Speciality Internal M edicine Referred Provider Sleep Medicine, Serv ices Referred Provider Specialty Sleep Medici ne General Notes Amanda Zamarripa 02:37:02 PM EDT > info faxed , Amanda Zamarripa 03/26/2024 09:02:04 AM EDT > info mailed Referral Priority Routine Referral Appointment Date 07/17/2024 Medications Medication SIG (Take, Route, Frequency, Duration) [...] a day for 5 day(s) 02/15/2025 Active Immunizations Vaccine Route Administration Date Status Comme nts SARS-COV-2 Moderna Unknown 01/15/2021 Administered SARS-COV-2 Moderna Unknown 02/19/2021 Administered Social History Tobacco Use: Social History Observation Description Date Details (start date - stop date) Never Smoker NA - NA Tobacco Use/Smoking Question Answer Notes Patient is a nonsmoker Additional Findings: Tobacco Non-User Cu rrent non-smoker, currently using no form of tobacco Alcohol Screen Question Answer Notes Did you have a drink containing alcohol in the p ast year? No Points 0 Interpretation Negative Problems Problem Type SNOMED Code ICD Code Onset Dates Problem Status W/U Status Risk Notes Problem 75332491 Lymphocytosis (D72.820) Active confirmed Problem Disorder of lumbar disc (216622034) Lumbar disc disease (M51.9) Active confirmed Problem 24992784 Dysthymia (F34.1) Active confirmed Problem 370646491 Gastroesophageal reflux disease with esophagitis without hemorrhage (K21.00) Active confirmed Problem 47985110 Anxiety, general ized (F41.1) Active confirmed Vital Signs Blood pressure diastolic 64 mm Hg 02/15/2025 prashant ght isup 3 pounds since 12-21-24 Height 69 in 02/15/2025 weight isup 3 p ounds since 12-21-24 Blood pressure systolic 112 mm Hg 02/15/2025 weig ht isup 3 pounds since 12-21-24 Weight 218 lbs 02/15/2025 weight isup 3 p ounds since 12-21-24 BMI 32.19 kg/m2 02/15/2025 weight isup 3 p ounds since 12-21-24 Encounters Encounter Location Date Provider Diagnosis Lebron Wolff MD [address] [place] [phone] 03/08/2024 Lebron Wolff Loud snoring R06.83 ; Annual physical exam Z00.00 ; Lethargy R53.83 and Depression screening Z13.31 Lebron Wolff MD [address] [place] [address] Drive [address] [place] [phone] 12/21/2024 Lebron Wolff Follow-up exam Z09 and Anxiety, generalized F41.1 Lebron Wolff MD [address] [place] [address] Drive [address] [place] [id number] 03/02/2024 Lebron Wolff Blood tests for routine general physical examination Z00.00 and Lymphocytosis D72.820 Lebron Wolff MD [address] [place] [id number] 06/12/2024 Lebron Wolff Respiratory infectio n J98.8 and Anxiety, generalized F41.1 Lebron Wolff MD [address] [place] [id number] 02/15/2025 Lebron Wolff Pneumonia J18.9 and Lethargy R53.83 Lebron Wolff MD [address] [place] [phone] 12/17/2024 Lebron Wolff Assessments Encounter Date Diagnosis (ICD Code) Assessment Notes Treatment Notes Treatment Clinical Notes Section Notes 03/08/2024 Loud snoring (ICD-10 - R06.83) needs sleep study 03/08/2024 Annual physical exam (ICD-10 - Z00.00) labs reviewed and discussed with patient 12/21/2024 Follow-up exam (ICD-10 - Z09) is doing well. no symptoms 12/21/2024 Anxiety, generalized (ICD-10 - F41.1) has gotten worse on paxil 10 03/02/2024 Blood tests for routine general physical examination (ICD-10 - Z00.00) 03/02/2024 Lymphocytosis (ICD-10 - D72.820) 06/12/2024 Respiratory infection (ICD-10 - J98.8) order given to patient 06/12/2024 Anxiety, generalized (ICD-10 - F41.1) 02/15/2025 Pneumonia (ICD-10 - J18.9) patient verbalized understanding of medication and directions for use 02/15/2025 Lethargy (ICD-10 - R53.83) advised patient to rest, will cpontact office if sx's do not improve 03/08/2024 Lethargy (ICD-10 - R53.83) pending diagnostic labs 03/08/2024 Depression screening (ICD-10 - Z13.31) negative screen Plan Of Treatment Pending Test Test Name Order Date XR CHEST 2 VIEW PA & LAT 06/12/2024 XR CHEST 2 VIEW PA & LAT 02/15/2025 XR GI SERIES 12/09/2022 Testosterone, Free/Total 02/15/2025 Next Appt Details Provider Name:Lebron Melendez ier, 03/12/2025 07:00:00 AM, [address], [address], [place], [place], [phone], Provider Name:Lebron yi, 03/18/2025 01:00:00 PM, [address], [address], [place], [place], [phone], Insurance Providers Payer Name Payer Address Payer Phone Subscriber Number Group Number Insured Name Patient Relationship to Insured Coverage Start Date Coverage End Date [facility] [address] [place] [phone] [id number] Javier Kirby Self - patient is the insured Medical (General) History Medical History History ICD Code history of petit mal and gran mal. manley
--- OUTSIDE RECORDS SUMMARY | 2025-02-15 14:13 | XMS_ITS ---
Author Organization Lebron Wolff MD Address [address] [place] [address] [place] [phone] Care Team Providers Care Insights Manager Name Role Phone Lebron Wolff Primary Care Provider REASON FOR VISIT ER visit rec'd was put on Azithromycin Amoxicillin. Encounters Encounter Location Date Provider Diagnosis Lebron Wolff MD [address] [place] [address] [address] [place], [place] [phone] 12/17/2024 Lebron Wolff Plan Of Treatment Next Appt Details Provider Name:Lebron Melendez ier, 03/12/2025 07:00:00 AM, [address] [place] [address], Suite [facility], [place], [place], [phone], Provider Name:Lebron Melendez ier, 03/18/2025 01:00:00 PM, [address] [place] [address], [place] [address], [place], [place], [phone], Progress Notes * James WYMANOB:1990 ( 34 yo M)Acc No.[id number]:12/17/2024 Patient:?Javier WYMAN :1990???Age:34 Y???Sex:Male Address:[address] [place] [address], [place], [address] * true * Date:? Generated for Printi ng/Faxing/eTransmitting on:?02/15/2025 02:13 PM EDT
--- OUTSIDE RECORDS SUMMARY | 2025-02-15 14:13 | XMS_ITS | Clinical Summary ---
Author Organization [facility] ity Address [address] [place] [address] Care Team Providers Care Boat Tender Name Role Phone Unavailable Primary Care Provider Unavailabl e Social History Tobacco Use Types Packs/Day Years Used Date Smoking Tobacco: Never Assessed Sex and Gender Information Value Date Recorded Sex Assigned at Not on file Legal Sex Male 11:58 PM EST Gender Identity Not on file Sexual Orientation Not on file Plan of Treatment Health Maintenance Due Date Last Done Comments DTaP,Tdap,and Td Vaccines (1 - Tdap) 2011 Hepatitis B Vaccines (1 of 3 - 19+ 3-dose series) 2011 COVID-19 Vaccine ( - 2023-2 5 season) 2024 02/19/2021, 01/15/2021 Influenza Vaccine (Season Ended) 2025 HIB Vaccines Aged Out No longer eligi ble based on patient's age to complete this topic HPV Vaccines Aged Out No longer eligi ble based on patient's age to complete this topic Hepatitis A Vaccines Aged Out No long er eligible based on patient's age to complete this topic IPV Vaccines Aged Out No longer eligi ble based on patient's age to complete this topic MMR Vaccines Aged Out No longer eligi ble based on patient's age to complete this topic Meningococcal ACWY Vaccine Aged Out N o longer eligible based on patient's age to complete this topic Meningococcal B Vaccine Aged Out No l onger eligible based on patient's age to complete this topic Pneumococcal Vaccine: Pediatrics (0 to 5 Years) and At-Risk Patients (6 to 64 Years) Aged Out No longer eligible b ased on patient's age to complete this topic RSV Immunization Patients Under 20 months Aged Out No longer eligible b ased on patient's age to complete this topic Varicella Vaccines Aged Out No longer eligible based on patient's age to complete this topic
--- OUTSIDE RECORDS SUMMARY | 2025-02-15 14:13 | XMS_ITS ---
Author Organization Lebron Wolff MD Address [address] [place] [phone] Care Team Providers Care Medical Lead Name Role Phone Lebron Wolff Primary Care Provider [phone] Allergies No Known Allergies REASON FOR VISIT [...] Lebron Wolff MD [address] [place] [phone] 12/21/2024 Lebron Wolff Follow-up exam Z09 and [...] 10 Next Appt Details Provider Name:Lebron Melendez kassidy, 03/12/2025 07:00:00 AM, [address], [address], [place], [phone], Provider Name:Lebron Melendez ier, 03/18/2025 01:00:00 PM, [address], [address], [place], [phone], Progress Notes * James WYMANOB:1990 ( 34 yo M)Acc No.[id number]:12/21/2024 Progress Notes Patient:?GAROOrquideade Provider:?Lebron Wolff MD :1990???Age:34 Y???Sex:Male Kem e:12/21/2024 Address:[address] [place], [place] [phone] Subjective: * Chief Complaints: * ???F/U Er Pneumonia * HPI: ???Symptom(s):?patient is a 34 yo male here for follow up from er. was feeling weak and dizzy. is all better now. had sob. * ROS:?General/Constitutional:?Denies?Chills.?Denies?Fatigue.?Denies?Fever.?Denies?Headache.?ENT:?Patient denies?decreased sense of smell, any loss of taste, sore throat.?Denies?Sore throat.?Respiratory:?Denies?Cough.?Denies?Shortness of breath at rest.?Denies?Shortness of breath with exertion.?Gastrointestinal:?Denies?Diarrhea.?Denies?Nausea.?Musculoskeletal:?Patient denies?muscle aches.?Peripheral Vascular:?Patient denies?red and blue toes.?Psychiatric:?Admits?Anxiety.?Denies?Depressed mood.?Admits?Difficulty sleeping.? * Medical History:? * Surgical History:? * Hospitalization/Major Diagno stic Procedure:? * Medications:?TakingpredniSON E 10 MG Tablet 1 tablet Orally Once [...] with food Orally Twice a day * Allergies:?N.K.D.A.yes[Aller gies Verified] Objective: * Vitals:?Ht: 69, Wt: 215, BMI :31.75, BP:102/70, Wt-k.52. * Examination: ???General Examination: ?GENERAL APPEARANCE:?alert, well hydrated, in no distress.?HEAD:?normocephalic.?SKIN:?good turgor.?HEART:?no murmurs, rubs, gallops, regular rate and rhythm.?LUNGS:?no wheezes, rales, rhonchi.? Assessment: * Assessment: 1.?Anxiety, generalized - F4 1.1 (Primary)???2.?Follow-up exam - Z09??? Plan: * Treatment: 2.?Follow-up exam? Notes: is doing well. no symptoms?? * Procedure Codes:? * * Sign off status: Completed true * Provider:?Lebron Wolff MD Date:?0 12/21/2024 Generated for Deb regan/Elvia/Alvaradoitting on:?02/15/2025 02:13 PM EDT History and Physical Notes * HPI (History [...]
--- OUTSIDE RECORDS SUMMARY | 2025-02-15 14:13 | XMS_ITS ---
Author Organization Lebron Wolff MD Address [address] [place] [phone] Care Team Providers Care Remnant Sorter Name Role Phone Lebron Wolff Primary Care Provider Allergies No Known Allergies REASON FOR VISIT DISCUSS PROBLEMS SINCE HAVING [...] Z-Jimmy 250 MG 2 tablet on the irst day, then 1 tablet daily for [...] Lebron Wolff MD [address] [place], [place] [phone] 02/15/2025 Lebron Wolff Pneumonia J18.9 and Lethargy [...] CHEST 2 VIEW PA & LAT 02/15/2025 Testosterone, Free/Total 02/15/2025 Next Appt Details Provider Name:Lebron yi, 03/12/2025 07:00:00 AM, [address] [place] [address], [address] [place] [address], [phone], Provider Name:Lebron yi, 03/18/2025 01:00:00 PM, [address] [place] [address], Suite [facility], [place], [place], [phone], Progress Notes * James WYMANOB:1990 ( 34 yo M)Acc No.[id number]:02/15/2025 Progress Notes Patient:?Orquidea WYMANde Provider:?Lebron Wolff MD :1990???Age:34 Y???Sex:Male Kem e:02/15/2025 Address:[address] [place], [place] [phone] Subjective: * Chief Complaints: * ???1. DISCUSS PROBLEMS SINCE HAVING PNEUMONIA. 2. Feels like he did when he had pneumonia SOB Covid negative this AM. * HPI: ???Symptom(s):?patient is a 34 yo male here to discuss issues related to recent pneumonia diagnosis/ feels like he did when he had pneumonia. has been going on for one week. short of breath is bad./ since november lost scence of smell . feeling tired all the time and brain fog. wants testosterone. * ROS:?General/Constitutional:?Denies?Chills.?Denies?Fatigue.?Denies?Fever.?Denies?Headache.?ENT:?Denies?Sore throat.?Respiratory:?Admits?Cough.?Admits?Shortness of breath at rest.?Admits?Shortness of breath with exertion.?Admits?Sputum production.?Admits?Wheezing.?Gastrointestinal:?Denies?Diarrhea.?Denies?Nausea.? * Medical History:?History of petit mal and gran mal. manley. * Medications:?Not-Taking/PRN Cyclobenzaprine HCl 10 MG Tablet 1 tablet at bedtime as needed Orally Once a day , Not-Taking/PRN Sulindac 150 MG Tablet 1 tablet with food Orally Twice a day , Discontinued predniSONE 10 MG Tablet 1 tablet Orally Once a day , Discontinued Paxil 20 MG Tablet 1 tablet in the morning Orally Once a day , Medication List reviewed and reconciled with the patient * Allergies:?N.K.D.A. Objective: * Vitals:?Ht: 69, Wt: 218, BMI :32.19, BP:112/64, Wt-k.88. weight isup 3 pounds since 12-21-24. * Examination: ???General Examination: ?GENERAL APPEARANCE:?well developed, well nourished.?HEAD:?normocephalic.?SKIN:?good turgor.?HEART:?no murmurs, rubs, gallops, regular rate and rhythm.?LUNGS:?no wheezes, rales, rhonchi, good air movement, clear to auscultation bilaterally.? Assessment: * Assessment: 1.?Pneumonia - J18.9 (Primar y)???2.?Lethargy - R53.83??? Plan: * Treatment: 2.?Lethargy? Notes: advised patient to rest, will cpontact office if sx's do not improve?? * Procedure Codes:?66256 VENIP UNCT, ROUTINE* * * The named appointment provid er may or may not be the originator of this progress note, and it is not deemed complete until electronically signed by the appointment provider. Sign off status: Pending * Provider:?Lebron Wolff MD Date:?0 02/15/2025 Generated for Deb regan/Elvia/Leilani on:?02/15/2025 02:12 PM EDT History and Physical Notes * [...]
== END 2025-02-15 13:55 | disposition home or self-care (01) ==
LOC: HO.XRAY 13:54
PROVIDERS: PCP Internal Medicine; Visit Provider Internal Medicine
DX: J18.9 Pneumonia, unspecified organism (principal)
CPT/HCPCS: 71046

== ENCOUNTER → 2025-02-15 14:01 | Outpatient (BNV) | payer OTHER, SELFPAY | PROVIDERS: PCP Internal Medicine; Visit Provider Radiology Diagnostic Radiology | DX: R07.9 Chest pain, unspecified (principal) | CPT/HCPCS: 71046 ==

== ENCOUNTER 2025-02-15 15:08 | Outpatient (REF) | payer OTHER, SELFPAY ==
--- OUTSIDE RECORDS SUMMARY | 2025-02-15 15:11 | XMS_ITS | Clinical Summary ---
Author Organization [facility] ity Address [address] [place] [address] Care Team Providers Care Carton Counter Feeder Name Role Phone Unavailable Primary Care Provider [...]
[2025-02-21 19:54] LABS: Testosterone, Free 60.4 pg/mL (35.0-155.0); Testosterone, Total 347 ng/dL (250-1100)
== END 2025-02-15 15:09 | disposition home or self-care (01) ==
LOC: HO.LNP 15:08
PROVIDERS: Visit Provider Internal Medicine
DX: J18.9 Pneumonia, unspecified organism (principal)
CPT/HCPCS: 84402; 84403

== ENCOUNTER 2025-04-13 10:44 | Outpatient (REF) | payer OTHER, SELFPAY ==
--- OUTSIDE RECORDS SUMMARY | 2025-04-13 10:48 | XMS_ITS | Patient Health Record ---
Author Organization Lebron Wolff MD Address [address] [place], [place] [phone] Care Team Providers Care Applications Coordinator Name Role Phone Lebron Wolff Primary Care Provider Allergies No Known Allergies Results Component Value Reference Range Notes XR chest 2V Reviewed date:07/01/2024 05:00:07 PM Interpretation: Performing Lab: Notes/Report: [address] [address] XRay Report Signed Patient: Javier Wyman MR#: [id number] : 1990 Acct:[id number] Age/Sex: 33 / M ADM Date: 06/12/24 Loc: HO.XRAY Attending Dr: Lebron Wolff MD Ordering Physician: Lebron Wolff MD Date of Service: 06/12/24 Procedure(s): XR chest 2V Accession Number(s): [id number] cc: Lebron Wolff MD EXAMINATION: XR CHEST [...] OV> 06/29/24 1700 DD/ 1055 TD/TT: 06/12/24 112 [employer] Senior Officer: BRYAN [address] [place] [address] XRay Report Signed Patient: Javier Wyman MR#: [id number] : 1990 Acct:[id number] Age/Sex: 33 / M ADM Date: 06/12/24 Loc: HO.SAJAN Attending Dr: Lebron Wolff MD Ordering Physician: Lebron Wolff MD Date of Service: 06/12/24 Procedure(s): XR [address] 2V Accession Number(s): [id number] cc: Lebron Wolff MD EXAMINATION: XR CHEST [...] MD 06/29/2024 05:00 PM EDT Dictated By: Constantino Pearl MD Signed By: <Electronically signed by Saulo Pearl MD in OV> 06/29/24 1700 DD/ 1055 TD/TT: 06/12/24 1124 [employer] Senior Officer: BRYAN Testosterone, Free/Total Reviewed date:02/22/2025 12:31:34 PM Interpretation: Performing Lab:[facility], [address] [place] [phone] Notes/Report: Testosterone, Total 309 508-0027 ng/dL Men with clinically significant hypogonadal symptoms and testosterone values repeatedly in the range of the 200-300 ng/dL or less, may benefit from testosterone treatment after adequate risk and benefits counseling. For additional information, please refer to https://education.[employer]/faq/F AQ165 (This link is being provided for informational/educatio nal purposes only.) (Note) This test was developed and its analytical performance characteristics have been determined by [facility]. It has not been cleared or approved by the FDA. This assay has been validated pursuant to the CLIA regulations and is used for clinical purposes. Testosterone, Free 60.4 35.0-155.0 pg/mL (Note) This test was developed and its analytical performance characteristics have been determined by [facility]. It has not been cleared or approved by the FDA. This assay has been validated pursuant to the CLIA regulations and is used for clinical purposes. [facility] [address] [address],[address] [facility] [address] Krzysztof Tai MD, PhD THIS TEST WAS PERFORMED AT: [facility] [address] [place] [address] [place] [phone] KRZYSZTOF TAI MD,PHD XR chest 2V Reviewed date:02/15/2025 04:58:32 PM Interpretation: Performing Lab: Notes/Report: [address] [address] XRay Report Signed Patient: Javier Wyman MR#: [id number] : 1990 Acct:[id number] Age/Sex: 34 / M ADM Date: 02/15/25 Loc: HO.XRAY Attending Dr: Lebron Wolff MD Ordering Physician: Lebron Wolff MD Date of Service: 02/15/25 Procedure(s): XR chest 2V Accession Number(s): [id number] cc: Lebron Wolff MD EXAMINATION: XR CHEST CLINICAL INFORMATION: PNEUMONIA; chest pain x2 weeks. COMPARISON: 06/12/2024. TECHNIQUE: 2 views of the chest were obtained. FINDINGS: The cardiac, hilar, and mediastinal contours are normal. The lungs are clear bilaterally. There is no pneumothorax or pleural effusion. There is no focal osseous or soft tissue abnormality. XR/XR chest 2V IMPRESSION: Normal chest. Electronically signed by: Miguel Diaz MD 02/15/2025 02:25 PM EDT Dictated By: Miguel Diaz MD Signed By: <Electronically signed by Miguel Diaz MD in OV> 02/15/25 1425 DD/ 140 TD/TT: 02/15/25 140 [employer]: [address] [address] XRay Report Signed Patient: Javier Wyman MR#: [id number] : 1990 Acct:[id number] Age/Sex: 34 / M ADM Date: 02/15/25 Loc: HO.ANOOPAY Attending Dr: Lebron Wolff MD Ordering Physician: Lebron Wolff MD Date of Service: 02/15/25 Procedure(s): XR t[address] 2V Accession Number(s): [id number] cc: Lebron Wolff MD EXAMINATION: XR CHEST CLINICAL INFORMATION: PNEUMONIA; chest vannessa n x2 weeks. COMPARISON: 06/12/2024. TECHNIQUE: 2 views of the chest were obtained. FINDINGS: The cardiac, hilar, and mediastinal contours are normal. The lungs are clear bilaterally. There is no pneumothorax or pleural effusion. There is no focal osseous or soft tissue abnormality. XR/XR chest 2V IMPRESSION: Normal chest. Electronically kelby d by: Miguel Diaz MD 02/15/2025 02:25 PM EDT Dictated By: Miguel Diaz MD Signed By: <Electronically signed by Miguel Diaz MD in OV> 02/15/25 1425 DD/ 140 TD/TT: 02/15/25 140 [employer]: Reason For Referral No Information Medications Medication SIG (Take, Route, Frequency, Duration) [...] Problem Status W/U Status Risk Notes Problem 29689691 Lymphocytosis (D72.820) Active confirmed Problem Disorder of lumbar disc (207411398) Lumbar disc disease (M51.9) Active confirmed Problem 75466052 Dysthymia (F34.1) Active confirmed Problem 973643636 Gastroesophageal reflux disease with esophagitis without hemorrhage (K21.00) Active confirmed Problem 21307050 Anxiety, general ized (F41.1) Active confirmed Vital [...] Diagnosis Lebron Wolff MD [address] [place] [id number] 12/21/2024 Lebron Wolff Follow-up exam Z09 and Anxiety, generalized F41.1 Lebron Wolff MD [address] [place] [id number] 06/12/2024 Lebron Bombardier Respiratory infection J98.8 and Anxiety, generalized F41.1 Lebron Wolff MD [address] [place] [address] [address] [place] [id number] 02/15/2025 Lebron Bombardier Pneumonia J18.9 and Lethargy R53.83 Lebron Wolff MD [address] [place] [address] [address] [place], [place] [phone] 12/17/2024 Lebron Wolff Assessments Encounter Date Diagnosis (ICD Code) Assessment Notes Treatment Notes Treatment Clinical Notes Section Notes 12/21/2024 Follow-up exam (ICD-10 - Z09) is doing well. no symptoms 12/21/2024 Anxiety, generalized (ICD-10 - F41.1) has gotten worse on paxil 10 06/12/2024 Respiratory infection (ICD-10 - J98.8) order given to patient 06/12/2024 Anxiety, generalized (ICD-10 - F41.1) 02/15/2025 Pneumonia (ICD-10 - J18.9) patient verbalized understanding of medication and directions for use 02/15/2025 Lethargy (ICD-10 - R53.83) advised patient to rest, will cpontact office if sx's do not improve Plan Of Treatment Pending Test Test Name Order Date XR CHEST 2 VIEW PA & LAT 06/12/2024 XR CHEST 2 VIEW PA & LAT 02/15/2025 XR GI SERIES 12/09/2022 Next Appt Details Provider Name:Lebron Melendez ier, 04/18/2025 08:30:00 AM, [address] [place] [address], [address], [place], [place], [phone], Insurance Providers Payer Name Payer Address Payer Phone Subscriber Number Group Number Insured Name Patient Relationship to Insured Coverage Start Date Coverage End Date [facility] Direct [address] [place] [address] [id number] Javier Wyman Self - patient is the insured Medical (General) History Medical History History ICD Code history of petit mal and gran mal. man[place]
[2025-04-13 10:59] LABS: MANUAL DIFF FLAG NO
[2025-04-13 11:15] LABS: Hematocrit 45.5 % (42.0-52.0); Hemoglobin 16.5 g/dl (14.0-18.0); White Blood Count 6.7 X10*3/uL (4.8-10.8)
[2025-04-13 11:16] LABS: Basophils Percent Auto 0.4 % (0-2); Eosinophils Percent Auto 0.3 % (0-4); Imm Gran Abs Auto 0.01 X10*3/uL (0.00-0.03); Imm Gran Pct Auto 0.1 % (0.0-0.4); Lymphocytes Percent Auto 29.3 % (20-40); Mean Corpuscular HGB Conc 36.3 g/dl (31.0-36.0); Mean Corpuscular Hemoglobin 31.7 pg (27.0-33.0); Mean Corpuscular Volume 87.5 fL (80.0-98.0); Mean Platelet Volume 10.5 fL (9.4-12.4); Monocytes Absolute Auto 0.5 X10*3/uL (0.1-1.2); Neutrophils Absolute Auto 4.2 x10*3/uL (2.0-8.3); Neutrophils Percent Auto 61.9 % (45-73); Platelet Count 211 X10*3/uL (160-400); Red Cell Distribution Width 11.8 % (11.0-16.0)
[2025-04-13 12:00] LABS: Alanine Aminotransferase 39 U/L (0-40); Albumin Level 4.6 g/dL (3.5-5.0); Alkaline Phosphatase 51 U/L (39-117); Anion Gap 15 (12-20); Aspartate Amino Transferase 24 U/L (5-37); Bilirubin Total 1.2 mg/dL (0.0-1.0); Blood Urea Nitrogen 10 mg/dL (9-16); Calcium 9.2 mg/dL (8.4-10.2); Carbon Dioxide 24 mmol/L (22-29); Chloride 107 mmol/L (96-108); Cholesterol 210 mg/dL (<200); Estimated Glomerular Filt Rate > 60; Glucose Random 107 mg/dL (60-115); HDL Cholesterol 49 mg/dL (>40); LDL Cholesterol Calculated 138 mg/dL (<100); Potassium 3.8 mmol/L (3.3-5.1); Sodium 142 mmol/L (135-145); Total Protein 6.9 g/dL (6.5-8.0); Triglycerides 115 mg/dL (<150)
[2025-04-13 12:03] LABS: Appearance Urine Clear; Color Urine Yellow; Glucose Urine UA Negative (Negative); Leukocyte Esterase Urine Negative (Negative); Nitrite Urine Negative (Negative); PH 6.5 (5.0-9.0); Urine Blood Negative (Negative); Urine Ketones Negative (Negative); Urine Protein Negative (Neg-Trace)
[2025-04-13 12:09] LABS: Bacteria Urine None Seen (None Seen); Hyaline Casts Urine 0-2 /LPF (0-2); RBC Urine 0-2 /HPF (0-2); Squamous Epithelial Cell Urine 0-2 /HPF (0-2); WBC Urine 0-5 /HPF (0-5)
== END 2025-04-13 10:45 | disposition home or self-care (01) ==
LOC: HO.LAB 10:44
PROVIDERS: PCP Internal Medicine; Visit Provider Internal Medicine
DX: Z00.00 Encounter for general adult medical examination without abnormal findings (principal); D72.820 Lymphocytosis (symptomatic)
CPT/HCPCS: 36415; 80053; 80061; 81001; 85025

== ENCOUNTER 2025-07-17 15:08 | Outpatient (AMB) | payer OTHER, SELFPAY ==
--- NOTE | 2025-07-17 15:16 | A.OFFVIS_ITS ---
Vital Signs 07/17/25 15:19 Height 5 ft 9 in Weight 200 lb BMI 29.5 BP 137/85 Blood Pressure Location Rt brachial Position Sitting Respiration 16 Pulse 68 Pulse Oximetry (%) 99 Intake Visit Reasons: INP-Seizures Allergies No Known Allergies Allergy (Verified 07/17/25 15:16) HPI Comments Details: Javier is a 35-year-old male patient with a past medical history of traumatic and childhood seizures who presents to the clinic to establish care for seizure. He tells me that he was diagnosed with epilepsy at the age of 6 and experienced seizure activity until approximately 24 or 25 years of age. His last known seizure was in 2013. At the time of his last seizure, he was living in [place] where he believes that he had an MRI of the brain and EEG testing. He is not sure of these results. He can not recall any specific diagnosis that he holds. He does note that at he had to be resuscitated and he was in critical care for weeks. It was not until age 6 that he started to develop known seizure activity. He believes that when he was younger, his seizures were characterized by staring events without any convulsions or abnormal movements. Prior seizure events were triggered by extreme stress or physical strain. He has in the past tried Tegretol and Carbatrol. He had breakthrough seizures on both these medications and was eventually placed on Dilantin. He tells me that he self discontinued the Dilantin in 2013 and has not been on any antiepileptics since. He can not recall the exact reason why he stopped the Dilantin but believes that it was because of adverse effects. He has not established care with a Neurology team since this time. He is currently experiencing higher levels of stress as he is going through a divorce with his . He believes that he may have had a recurrent seizure event a few weeks ago. He remembers a sensation that his mind was drifting and a sensation of weakness and cold sweats. After feeling this way, he can not recall any further activity such as staring or abnormal movements. He does note that he felt very tired, dizzy, and ?out of it? after the event. He denies any tongue biting or urinary incontinence. This event was not witnessed. Past medication trials: Carbitrol- Breakthrough seizures Tegretol-Breakthrough seizures Dilantin- Last med he had been on in the past. Worked well with the patient's self discontinued due to side effects. Seizure background information: Onset of seizures:6 years old Date of last seizure:2013 Seizure type:Staring episodes Aura/warning signs:Feeling of mind drifting Postictal period:Weakness and somnolence Triggers:Possibly stress Last brain imaging:Possibly 2013 Last EE Current medications:None Compliance with medications:N/A History of brain infection:No History of significant illness or hospitalization: Hospitalization and critical care shortly after History of stroke of brain bleed:No History of pre-term :No but did have a traumatic with resuscitation History of learning disability:Yes History of developmental delay:No History of IEP in school:Yes Years of schooling completed: Highschool and trade school Family history of seizure:No Driving status:Currently driving Family/social support: No Social/medical services within the home:No [facility] Medical History (Updated 07/18/25 @ 08:04 by Sana Schmitz CNP) Tiredness Insomnia Surgical History No pertinent past surgical history Family History Mother Diabetes mellitus Heart disease Father COPD (chronic obstructive pulmonary disease) Social History Alcohol intake: never Patient Tobacco Use Status: Never used Tobacco Physical Exam Vital Signs: Last Vital Signs Pulse 68 07/17/25 15:19 Resp 16 07/17/25 15:19 BP 137/85 07/17/25 15:19 Pulse Ox 99 07/17/25 15:19 BMI result Body Mass Index 29.5 Const General: cooperative, healthy appearing, comfortable and no acute distress Nutritional Appearance: well nourished Orientation/consciousness: patient oriented x3 Limitations: no limitations HEENT Head: Yes normal to inspection and Yes normocephalic Eyes General: appearance normal, both eyes and all related structures Visual Gonzales: normal visual gonzales by confrontation Alignment and Position: alignment normal Periorbital: periorbital findings normal Eyelids: Yes eyelids normal Conjunctivae: conjunctivae normal Sclerae: sclerae normal Neuro General: patient oriented x3 and deep tendon reflexes 2+ bilaterally Cranial nerves: Yes CN's II-XII intact bilaterally and Yes Facial sensation intact/muscles of mastication intact Cognition (Neuro): normal cognition Gait exam (Neuro): Normal gait present Motor exam (neuro): 5/5 motor strength present throughout and no tremor noted Sensory Exam: double simultaneous stimulation for sensation normal Romberg Test: Negative Pupils: Normal pupillary reactivity/response: bilateral Psych Appearance: grossly normal Mental Status: mental status grossly normal Speech and movement: Normal speech and movement present and Clear speech present Affect: normal affect Attitude: cooperative Thought process: Normal thought process present Thought content: Normal thought content present Insight: Good insight present (Psych) Judgement: Good judgement present (Psych) Assessment & Plan Assessment & Plan (1) Seizure disorder: Code(s): G40.909 - Epilepsy, unspecified, not intractable, without status epilepticus Category: Medical Plan Javier is a 35-year-old male patient with a past medical history of traumatic and childhood seizures who presents to the clinic to establish care for seizure. He has a history of traumatic and at age 6 began having seizure events characterized as staring events. He was last on Dilantin but self- discontinued this in 2013 around the time of his last seizure event. His prior workups in diagnosis were completed in [place] and he has not established care with any Neurology team in the area. He is currently going through divorce and under higher levels of stress. He believes that he may have had a seizure event a few weeks back but this was not a witnessed event. He does recall the feeling before the event and a feeling of postictal symptoms similar to his prior seizure events. He is not currently on any antiepileptics. We will 1st obtain an EEG and an MRI of the brain to make informed decisions about antiepileptics moving forward. We discussed likely use of Keppra once we have testing back. -EEG awake and asleep with sleep deprivation -MRI brain with and without contrast -2 month follow-up or sooner if needed for any possible breakthrough seizure events Coding Level of Care Code New Pt Level 4 (67793) Diagnoses Seizure disorder G40.909
[2025-07-17 15:19] VITALS: BP 137/85; PULSE 68; RESP 16; O2SAT 99; BMI 29.5
--- OUTSIDE RECORDS SUMMARY | 2025-07-17 16:10 | XMS_ITS | Clinical Summary ---
Author Organization [facility] Address [id number] [place] [phone] Care Team Providers Care Dough Molder Name Role Phone Unavailable Primary Care Provider [...] of 3 - 19+ 3-dose series) 2011 HPV Vaccines (1 - 3-dose SCD M series) 2019 Depression Screening 10/17/2024 COVID-19 Vaccine (3 - 2024-2 6 season) 2025 02/19/2021, 01/15/2021 Influenza Vaccine (#1) 2025 RSV Immunization Adult Patients (1 - 1-dose 75+ series) 2067 HIB Vaccines Aged Out No longer eligi [...] 5 Years) and At-Risk Patients (6 to 49 Years) Aged Out No longer eligible b ased on patient's age to complete this topic RSV Immunization Patients Under 20 months Aged Out No longer eligible b ased on patient's age to complete this topic Varicella Vaccines Aged Out No longer eligible based on patient's age to complete this topic
== END 2025-07-17 16:08 | disposition home or self-care (01) ==
LOC: HO.HSM 15:08
PROVIDERS: PCP Internal Medicine; Visit Provider Psychiatry & Neurology Neurology
DX: G40.909 Epilepsy, unspecified, not intractable, without status epilepticus (principal)
CPT/HCPCS: 99204

== ENCOUNTER → 2025-07-17 15:08 | Outpatient (BNVA) | payer OTHER, SELFPAY | PROVIDERS: PCP Internal Medicine; Visit Provider Psychiatry & Neurology Neurology | DX: G40.909 Epilepsy, unspecified, not intractable, without status epilepticus (principal) | CPT/HCPCS: 99202 ==

== ENCOUNTER 2025-08-19 12:53 | Outpatient (REF) | payer OTHER, SELFPAY ==
--- NOTE | 2025-08-19 14:22 | EEG_ITS ---
Reason for Exam: Epilepsy G40.909 History: H/O seizures since age 6 to 25. Patient states his last known seizure was in 2013. About a month ago patient reports multiple recurrent episodes that felt like his seizures. Episodes included lightheadedness, cold sweats and forgetfulness. Last meal at 11 am today. Medication: no list available Technical description Photic stimulation: completed Hyperventilation: performed - good effort Behavioral state: pleasant State of Consciousness: awake and sleep Skull defect: none Sedation: none Handedness: right Duration of study:?32 min ?54 sec Description: This is a 16 channel EEG with an EKG lead. Patient is reported awake and asleep during the tracing. Background EEG rhythm is about 10 hertz 5- 50 microvolt posteriorly and lower amplitude fast anteriorly. Photic stimulation does not produce any significant driving. Hyperventilation is unremarkable. Cardiac lead does not reveal any significant abnormality. No sharp wave spikes or paroxysmal tendency noted. Impression: Unremarkable EEG. MTDD
== END 2025-08-19 12:54 | disposition home or self-care (01) ==
LOC: HO.NEURO 12:53
PROVIDERS: PCP Internal Medicine; Visit Provider Nurse Practitioner
DX: G40.909 Epilepsy, unspecified, not intractable, without status epilepticus (principal)
CPT/HCPCS: 95819

== ENCOUNTER → 2025-08-19 14:22 | Outpatient (BNV) | payer OTHER, SELFPAY | PROVIDERS: PCP Internal Medicine; Visit Provider Psychiatry & Neurology Neurology | DX: G40.909 Epilepsy, unspecified, not intractable, without status epilepticus (principal) | CPT/HCPCS: 95819 ==

== ENCOUNTER → 2025-09-24 15:44 | Outpatient (BNV) | payer OTHER, SELFPAY | PROVIDERS: PCP Internal Medicine; Visit Provider Radiology Diagnostic Radiology | DX: G40.909 Epilepsy, unspecified, not intractable, without status epilepticus (principal) | CPT/HCPCS: 70553 ==

== ENCOUNTER 2025-09-24 15:45 | Outpatient (REF) | payer OTHER, SELFPAY ==
--- OUTSIDE RECORDS SUMMARY | 2024-06-12 05:30 | XMS_ITS ---
Author Organization Lebron Wolff MD Address [address] [place] [phone] Care Team Providers Care Tack Puller Name Role Phone Lebron Wolff Primary Care Provider Allergies No Known Allergies REASON FOR VISIT 3 month Medications Medication SIG (Take, Route, Frequency, Duration) Notes Start Date End Date Status Sulindac 150 MG 1 tablet with food Orally Twice a day for 30 day(s) Not-Taking Cyclobenzaprine HCl 10 MG 1 tablet at be dtime as needed Orally Once a day for 30 day(s) Not-Taking Paxil 10 MG 1 tablet in the morning Orally Once a day for 30 day(s) 06/12/2024 Active predniSONE 10 MG 1 tablet Orally Once a day for 30 day(s) Active Problems Problem Type SNOMED Code ICD Code Onset Dates Problem Status W/U Status Risk Notes Problem [id number] Anxiety, generalized (F41.1) Active confirmed Vital Signs Blood pressure systolic 96 mm Hg 06/12/20 24 Blood pressure diastolic 60 mm Hg 024 Height 69 in 06/12/2024 Weight 214 lbs 06/12/2024 BMI 31.60 kg/m2 06/12/2024 weight is up 5 pounds since 03-08-24 Encounters Encounter Location Date Provider Diagnosis Lerbon Wolff MD [address] [place] [address] [phone] 06/12/2024 Lebron Wolff Respiratory infection J98.8 and Anxiety, generalized F41.1 Assessments Encounter Date Diagnosis (ICD Code) Assessment Notes Treatment Notes Treatment Clinical Notes Section Notes 06/12/2024 Respiratory infection (ICD-10 - J98.8) order given to patient 06/12/2024 Anxiety, generalized (ICD-10 - F41.1) Plan Of Treatment Medication Medication Name Sig Start Date Stop Date Notes Paxil 10 MG 1 tablet in the morn ing Orally Once a day for 30 day(s) 06/12/2024 Treatment Notes Assessment Notes Respiratory infection order given to eder ledesma Pending Test Test Name Order Date XR CHEST 2 VIEW PA & LAT 06/12/2024 Next Appt Details Follow Up: 4 Weeks, Reason: Provider Name:Lebron Melendez ier, 10/08/2025 02:00:00 PM, [address] [place] [address], [address] [place] [address], [phone], Provider Name:Lebron Melendez ier, 04/10/2026 08:00:00 AM, [address] [place] [address], Suite [facility], [place], [place], [phone], Provider Name:Lebron Melendez ier, 04/22/2026 02:30:00 PM, [address] [place] [address], [address] [place] [address], [phone], Progress Notes * James WYMANOB:1990 ( 34 yo M)Acc No.[id number]:06/12/2024 Progress Notes Patient: Javier Saab Provider: Ellyn Wolff MD :1990 A ge:33 Y S ex:Male Date:06/12/2024 Address:[address] [place], [place] [phone] Subjective: * Chief Complaints: * 3 month * HPI: S ymptom(s): suleman is a 33 yo male here for 3 month follow up visit, complaining his mind is constantly racing and missing steps at work. if someone is around doesn't . if anyone is watching he makes mistakes. having troubles with reactions to the uv labels/ has a respratory infection for 2 months. went to walk in and was put on zpack. no chest xray. * ROS: G eneral/Constitutional: Denies C hills. D enies F atigue. D enies F ever. D enies H eadache. E NT: Denies S ore throat. R espiratory: Denies C ough. D enies S hortness of breath at rest. D enies S hortness of breath with exertion. G astrointestinal: Denies D iarrhea. D enies N ausea. P sychiatric: Admits A nxiety. D enies D epressed mood. A dmits D ifficulty sleeping. D enies E ating disorder. D enies L oss of appetite.?Admits S tressors, w ork. D enies S ubstance abuse. D enies S uicidal thoughts. * Medical History: * Surgical History: * Hospitalization/Major Diagno stic Procedure: * Medications: T akingpredniSONE 10 MG Tablet 1 tablet Orally Once a dayTaking predniSONE 10 MG Tablet 1 tablet Orally Once a dayNot-Taking/PRNCyclobenzaprine HCl 10 MG Tablet 1 tablet at bedtime as needed Orally Once a daySulindac 150 MG Tablet 1 tablet with food Orally Twice a dayMedication List reviewed and reconciled with the patientNot- Taking/PRN Cyclobenzaprine HCl 10 MG Tablet 1 tablet at bedtime as needed Orally Once a dayNot-Taking/PRN Sulindac 150 MG Tablet 1 tablet with food Orally Twice a dayMedication List reviewed and reconciled with the patient * Allergies: N .K.D.A.yes[Allergies Verified] Objective: * Vitals: H t: 69, Wt:214, BMI:31.60, BP:96/60 weight is up 5 pounds since 03-08-24. * Examination: G eneral Examination: GENERAL APPEARANCE: alert, well hydrated, in no distress , male. HEAD: normocephalic. SKIN: with some skin changes on hands. HEART: no murmurs, rubs, gallops, regular rate and rhythm. LUNGS: no wheezes, rales, rhonchi, good air movement, clear to auscultation bilaterally. Assessment: * Assessment: 1. R espiratory infection - J98.8 (Primary) 2 . A nxiety, generalized - F41.1 Plan: * Treatment: 2. A nxiety, generalized Start Paxil Tablet, 10 MG, 1 tablet in the morning, Orally, Once a day, 30 day(s), 30, Refills 3.? * Procedure Codes: * Follow Up: 4 Weeks * * Sign off status: Completed true * Provider: Ellyn Wolff MD Date: 0 06/12/2024 Generated for Luciai shereen/Elvia/eTransmitting on: 1 11/25/2024 10:37 PM EST History and Physical Notes * HPI (History of Present Illness) Category Sub-Category Detail Notes Category Not es Symptom(s) suleman is a 33 yo male here for 3 month follow up visit, complaining his mind is constantly racing and missing steps at work. if someone is around doesn't . if anyone is watching he makes mistakes. having troubles with reactions to the uv labels/ has a respratory infection for 2 months. went to walk in and was put on zpack. no chest xray Examination Category Sub-Category Detail Notes Category Not es General Examination GENERAL APPEARANCE: alert, w ell hydrated, in no distress , male HEAD: normocephalic HEART: no murmurs, rubs, ga llops, regular rate and rhythm LUNGS: no wheezes, rales, r honchi, good air movement, clear to auscultation bilaterally SKIN: with some skin wilson es on hands
--- OUTSIDE RECORDS SUMMARY | 2024-07-09 12:15 | XMS_ITS ---
Author Organization Lebron Wolff MD Address [address] [place] [address] [place] [phone] Care Team Providers Care Powder Coat Painter Name Role Phone Lebron Wolff Primary Care Provider [phone] REASON FOR VISIT 4 week Encounters Encounter Location Date Provider Diagnosis Lebron Wolff MD [address] [place] [address] [address] [place] [phone] 07/09/2024 Lebron Wolff Plan Of Treatment Next Appt Details Provider Name:Lebron Melendez ier, 10/08/2025 02:00:00 PM, [address] [place] [address], Suite [facility], [place], [place], [phone], Provider Name:Lebron yi, 04/10/2026 08:00:00 AM, [address] [place] [address], [address], [phone], Provider Name:Lebron Melendez ier, 04/22/2026 02:30:00 PM, [address] [place] [address], [address], [phone], Progress Notes * James WYMANOB:1990 ( 35 yo M)Acc No.[id number]:07/09/2024 Progress Notes Patient: Javier HASSAN Provider: Ellyn Wolff MD :1990 A ge:34 Y S ex:Male Date:07/09/2024 Address:[address] [place] [address] [place] [address] Subjective: * Chief Complaints: * 1 . 4 week. * Medical History: Objective: * Vitals: Assessment: Plan: * Treatment: * * The named appointment provid er may or may not be the originator of this progress note, and it is not deemed complete until electronically signed by the appointment provider. Sign off status: Pending * Provider: Ellyn Wolff MD Date: 0 07/09/2024 Generated for Deb regan/Elvia/Alvaradoitting on: 1 11/25/2024 10:35 PM EST
--- OUTSIDE RECORDS SUMMARY | 2024-12-17 02:53 | XMS_ITS ---
Author Organization Lebron Wolff MD Address [address] [place] [address] [place] [phone] Care Team Providers Care Chef Instructor Name Role Phone Lebron Wolff Primary Care Provider [phone] REASON FOR VISIT ER visit rec'd was put on Azithromycin Amoxicillin. Encounters Encounter Location Date Provider Diagnosis Lebron Wolff MD [address] [place] [address] [place] [phone] 12/17/2024 Lebron Wolff Plan Of Treatment Next Appt Details Provider Name:Lebron Melendez ier, 10/08/2025 02:00:00 PM, [address] [place] [address], [address], [phone], Provider Name:Lebron Melendez ier, 04/10/2026 08:00:00 AM, [address] [place] [address], [address], [phone], Provider Name:Lebron Melendez ier, 04/22/2026 02:30:00 PM, [address] [place] [address], [address], [phone], Progress Notes * James WYMANOB:1990 ( 34 yo M)Acc No.[id number]:12/17/2024 Patient: Bri APOLONIAOrquideade :1990 A ge:34 Y S ex:Male Address:[address] [place] [address], [place], [address] * true * Date: Generated for Deb regan/Elvia/Leilani on: 1 11/25/2024 10:38 PM EST
--- OUTSIDE RECORDS SUMMARY | 2024-12-21 05:30 | XMS_ITS ---
Author Organization Lebron Wolff MD Address [address] [place] [phone] Care Team Providers Care Agricultural Appraiser Name Role Phone Lebron Wolff Primary Care [...] Lebron Wolff MD [address] [place] [phone] 12/21/2024 Lebron Wolff Follow-up exam Z09 and [...] 02:00:00 PM, [address], [address], [place], [place], [phone], Provider Name:Lebron Melendez ier, 04/10/2026 08:00:00 AM, [address], [address], [place], [place], [phone], Provider Name:Lebron Melendez ier, 04/22/2026 02:30:00 PM, [address], [address], [place], [place], [phone], Progress Notes * GAROOrquidea GARCÍAMiguel AOB:1990 ( 34 yo M)Acc No.[id number]:12/21/2024 Progress Notes Patient: Javier HASSAN Provider: Ellyn Wolff MD :1990 A ge:34 Y S ex:Male Date:12/21/2024 Address:[address] [place], [place] [phone] Subjective: * Chief Complaints: * F /U [...] 12/21/2024 Generated for Deb regan/Elvia/Leilani on: 1 11/25/2024 10:38 PM EST History and Physical Notes * [...]
--- OUTSIDE RECORDS SUMMARY | 2025-02-15 08:30 | XMS_ITS ---
Author Organization Lebron Wolff MD Address [address] [place], [place] [phone] Care Team Providers Care Pattern Vault Clerk Name Role Phone Lebron Wolff Primary Care Provider Allergies No Known Allergies Results Component Value Reference Range Notes Testosterone, Free/Total Reviewed date:02/22/2025 12:31:34 PM Interpretation: Performing Lab:[facility], [address] [place] [phone] Notes/Report: Testosterone, Total 285 654-6295 ng/dL Men with clinically significant hypogonadal symptoms and testosterone values repeatedly in the range of the 200-300 ng/dL or less, may benefit from testosterone treatment after adequate risk and benefits counseling. For additional information, please refer to https://education.[employer] .[employer]/faq/PIP251 (This link is being provided for informational/educational purposes only.) (Note) This test was developed and its analytical performance characteristics have been determined by [employer]. It has not been cleared or approved by the FDA. This assay has been validated pursuant to the CLIA regulations and is used for clinical purposes. Testosterone, Free 60.4 35.0-155.0 pg/mL (Note) This test was developed and its analytical performance characteristics have been determined by [employer]. It has not been cleared or approved by the FDA. This assay has been validated pursuant to the CLIA regulations and is used for clinical purposes. [facility] [address] [address],[address] [facility] [address] Emely Tai MD, PhD THIS TEST WAS PERFORMED AT: [facility] [address] [address] [address] [place] [address] EMELY TAI MD,PHD REASON FOR VISIT DISCUSS [...] Location Date Provider Diagnosis Lebron Wolff MD [address] [place] [address] Drive [address] [place], [place] [phone] 02/15/2025 Lebron Wolff Pneumonia J18.9 and Lethargy [...] 02:00:00 PM, [address], [address], [place], [place], [phone], Provider Name:Lebron Melendez ier, 04/10/2026 08:00:00 AM, [address], [address], [place], [place], [phone], Provider Name:Lebron Melendez ier, 04/22/2026 02:30:00 PM, [address], [address], [place], [place], [phone], Progress Notes * Orquidea WYMANMiguel AOB:1990 ( 34 yo M)Acc No.[id number]:02/15/2025 Progress Notes Patient: Javier HASSAN Provider: Ellyn Wolff MD :1990 A ge:34 Y S ex:Male Date:02/15/2025 Address:[address] [place], [place] [phone] Subjective: * Chief Complaints: * D ISCUSS [...] 02/15/2025 Generated for Deb regan/Elvia/eTransmitting on: 1 11/25/2024 10:36 PM EST History and Physical Notes * [...]
--- OUTSIDE RECORDS SUMMARY | 2025-04-12 02:00 | XMS_ITS ---
Author Organization Lebron Wolff MD Address [address] [place], [place] [phone] Care Team Providers Care Weekend Receptionist Name Role Phone Lebron Wolff Primary Care Provider [phone] Results Component Value Reference Range Notes Complete Blood Count Auto Di ff Reviewed date:04/16/2025 12:35:07 PM Interpretation: Performing Lab:[facility], [address] [place] [phone] Notes/Report: White Blood Count 6.7 4.8-10.8 X10*3/uL [...] Panel Reviewed date:04/16/2025 12:35:15 PM Interpretation: Performing Lab:[facility], [address] [place] [phone] Notes/Report: Triglycerides 115 <150 mg/dL Desirable Triglyceride: [...] [address] [facility] [address] [place], [place] [phone] 04/12/2025 Lebron Wolff Blood tests for routine general physical examination Z00.00 and Lymphocytosis D72.820 Assessments Encounter Date Diagnosis (ICD Code) Assessment Notes Treatment Notes Treatment Clinical Notes Section Notes 04/12/2025 Blood tests for routine general physical examination (ICD-10 - Z00.00) 04/12/2025 Lymphocytosis (ICD-10 - D72.820) Plan Of Treatment Pending Test Test Name Order Date Urinalysis and Microscopic 04/12/2025 Comprehensive [place]. Panel Fast Next Appt Details Provider Name:Lebron Melendez ier, 10/08/2025 02:00:00 PM, [address], [address], [place], [phone], Provider Name:Lebron Melendez ier, 04/10/2026 08:00:00 AM, [address], [address], [place], [phone], Provider Name:Lebron Melendez ier, 04/22/2026 02:30:00 PM, [address], [address], [place], [place], [phone], Progress Notes * James WYMANOB:1990 ( 35 yo M)Acc No.[id number]:04/12/2025 Progress Note Patient: Javier HASSAN Provider: Ellyn Wolff MD :1990 A ge:34 Y S ex:Male Date:04/12/2025 Address:[address] [place] [address] Subjective: * Chief Complaints: * 1 . Yearly fasting labs. * Medical History: Objective: * Vitals: Assessment: * Assessment: 1. B lood tests for routine general physical examination - Z00.00 (Primary) 2 .?Lymphocytosis - D72.820 Plan: * Treatment: 2. L ymphocytosis L AB: Urinalysis and Microscopic L AB: Comprehensive [place]. Panel Fast L AB: Complete Blood Count [...] 04/12/2025 Generated for Deb regan/Elvia/eTvigneshsmitting on: 1 11/25/2024 10:37 PM EST
--- OUTSIDE RECORDS SUMMARY | 2025-04-18 03:30 | XMS_ITS ---
Author Organization Lebron Wolff MD Address [address] [place], [place] [phone] Care Team Providers Care Manager Client Name Role Phone Lebron Wolff Primary Care Provider [phone] Allergies No Known Allergies Reason For Referral [...] Wolff MD [address] [place], [place] [phone] 04/18/2025 Lebron Wolff Seizure R56.9 and Adult general medical examination Z00.00 Assessments Encounter Date Diagnosis (ICD Code) Assessment Notes Treatment Notes Treatment Clinical Notes Section Notes 04/18/2025 Seizure (ICD-10 - R56.9) referral to neurology [facility] [place]. had been on meds in past. have explained that he should not drive for 6 months after having a seizure 04/18/2025 Adult general medical examination (ICD-10 - Z00.00) labs reviewed and discussed with patient Plan Of Treatment Treatment Notes Assessment Notes Seizure referral to neurolog y [facility]. had been on meds in past. have [...] 02:00:00 PM, [address], [address], [place], [place], [phone], Provider Name:Lebron yi, 04/10/2026 08:00:00 AM, [address], [address], [place], [place], [phone], Provider Name:Lebron yi, 04/22/2026 02:30:00 PM, [address], [address], [place], [place], [id number], Progress Notes * James WYMANOB:1990 ( 34 yo M)Acc No.[id number]:04/18/2025 Progress Notes Patient: Javier HASSAN Provider: Ellyn Wolff MD :1990 A ge:34 Y S ex:Male Date:04/18/2025 Address:[address] [place], [place] [id number] Subjective: * Chief Complaints: * A nnual [...] of concern. D enies P hotosensitivity. R daiys d enies. N eurologic: Dizziness d enies. F ainting d enies. H eadache?denies. * Medical History: * Surgical History: * Hospitalization/Major Diagno stic Procedure: * Family History: F ather: 63 yrs. M other: 53 yrs. 1 brother(s) , 2 sister(s) . 2 son(s) . . Mother- [place] Father Dementia Pneumonia No pertinent family medical [...] Occupation: weeks/months/years, works full-time but out on [employer]. Pets: none, cats: dogs:. Travel outside of [...] mg/dL Urine Blood Negative Negative - Specific [place] - Urine 1.010 1.005-1.025 - Urine Protein [...] 01:30 AM) Value Reference Range Testosterone, Total 283 098-0701 - ng/dL Testosterone, Free 60.4 35.0-155.0 - [...] 2. S eizure Notes: referral to neurology [facility]. had been on meds in past. have explained that he should not drive for 6 months after having a seizure Referral To:Ladonna Britt Neurology Reason:Seizure * Procedure Codes: * Follow Up: Alicia hortensia: is moving to [place] * * Sign off status: Completed true * Provider: Ellyn Wolff MD Date: 0 04/18/2025 Generated for Deb regan/Elvia/Alvaradoitting on: 1 11/25/2024 10:37 PM EST History [...]
--- OUTSIDE RECORDS SUMMARY | 2025-06-10 10:15 | XMS_ITS ---
Author Organization Lebron Wolff MD Address [address] [place] [id number] Care Team Providers Care Unclaimed Property Manager Name Role Phone Lebron Wolff Primary Care Provider Allergies No Known Allergies REASON FOR VISIT anxiety Medications Medication SIG (Take, Route, Frequency, Duration) Notes Start Date End Date Status Escitalopram Oxalate 10 MG 1 tablet Oral ly Once a day for 30 days 06/10/2025 Active Sulindac 150 MG 1 tablet with food Orally Twice a day for 30 day(s) Not-Taking Albuterol Sulfate HFA 108 (90 Base) MCG/ACT 1 puff as needed Inhalation every 4 hrs for 30 days 02/15/2025 Active Cyclobenzaprine HCl 10 MG 1 tablet at be dtime as needed Orally Once a day for 30 day(s) Not-Taking Problems Problem Type SNOMED Code ICD Code Onset Dates Problem Status W/U Status Risk Notes Problem Anxiety (08700983) Anxiety (F41.9) Active confirmed Vital Signs Blood pressure systolic 102 mm Hg 06/10/20 25 Blood pressure diastolic 66 mm Hg 025 Height 69 in 06/10/2025 Weight 196 lbs 06/10/2025 BMI 28.94 kg/m2 06/10/2025 weight is down 7 pounds [facility] e 04-18-25 Encounters Encounter Location Date Provider Diagnosis Lebron Wolff MD [address] [place] [phone] 06/10/2025 Lebron Wolff Anxiety F41.9 Assessments Encounter Date Diagnosis (ICD Code) Assessment Notes Treatment Notes Treatment Clinical Notes Section Notes 06/10/2025 Anxiety (ICD-10 - F41.9) patient verbalized understanding of medication and directions for use Plan Of Treatment Medication Medication Name Sig Start Date Stop Date Notes Escitalopram Oxalate 10 MG 1 tablet Oral ly Once a day for 30 days 06/10/2025 Treatment Notes Assessment Notes Anxiety patient verbalized u nderstanding of medication and directions for use Next Appt Details Follow Up: 6 Weeks, Reason: Provider Name:Lebron Melendez ier, 10/08/2025 02:00:00 PM, [address] [place] [address], [address] [place] [address], [phone], Provider Name:Lebron Melendez ier, 04/10/2026 08:00:00 AM, [address] [place] [address], [place] [address], [place], [place], [phone], Provider Name:Lebron harrellr, 04/22/2026 02:30:00 PM, [address] [place] [address], [address], [phone], Progress Notes * GARO, JamesOB:1990 ( 35 yo M)Acc No.[id number]:06/10/2025 Progress Notes Patient: Javier HASSAN Provider: Ellyn Wolff MD :1990 A ge:34 Y S ex:Male Date:06/10/2025 Address:[address] [place] [address] Subjective: * Chief Complaints: * A nxiety * HPI: S ymptom(s): patient is a 34 yo male here with complaint of having trouble sleeping. is going to get . in custody valentine. * ROS: G eneral/Constitutional: Denies C hills. [...] epressed mood. A dmits D ifficulty sleeping. A dmits E ating disorder. L oss of appetite A dmits.?Admits S tressors. D enies S ubstance abuse. D enies S uicidal thoughts. * Medical History: * Surgical History: * Hospitalization/Major Diagno stic Procedure: * Medications: T akingAlbuterol Sulfate HFA 108 [...] tablet with food Orally Twice a day Medication List reviewed and reconciled with the patientNot-Taking/PRN Cyclobenzaprine HCl 10 MG Tablet 1 tablet at bedtime as needed Orally Once a day Not-Taking/PRN Sulindac 150 MG Tablet 1 tablet with food Orally Twice a day Medication List reviewed and reconciled with the patient * Allergies: N .K.D.A.yes[Allergies Verified] Objective: * Vitals: H t: 69, Wt: 196, BMI:28.94, BP:102/66, Wt-k.91. weight is down 7 pounds since 04-18-25. * Examination: G eneral Examination: GENERAL APPEARANCE: a lert, well hydrated, in no distress.? HEAD: n ormocephalic. SKIN: g ood turgor. HEART: n o murmurs, rubs, gallops, regular rate and rhythm.? LUNGS: n o wheezes, rales, rhonchi, good air movement, clear to auscultation bilaterally. Assessment: * Assessment: 1. A nxiety - F41.9 (Primary) Plan: * Treatment: * Procedure Codes: * Follow Up: 6 Weeks * * Sign off status: Completed true * Provider: Ellyn Wolff MD Date: 0 06/10/2025 Generated for Deb regan/Elvia/eTvigneshsmitting on: 11/25/2024 10:35 PM EST History and Physical Notes * HPI (History of Present Illness) Category Sub-Category Detail Notes Category Not es Symptom(s) patient is a 34 yo male here with complaint of having trouble sleeping. is going to get . in custody valentine. Examination Category Sub-Category Detail Notes Category Not es General Examination GENERAL APPEARANCE: alert, w ell hydrated, in no distress HEAD: normocephalic HEART: no murmurs, rubs, ga llops, regular rate and rhythm LUNGS: no wheezes, rales, r honchi, good air movement, clear to auscultation bilaterally SKIN: good turgor
--- NOTE | ~2025-09-24 | MR_ITS ---
EXAMINATION: MR BRAIN WITHOUT AND WITH CONTRAST CLINICAL INFORMATION: G 40.909. Epilepsy. COMPARISON: None available. TECHNIQUE: Multiplanar, multisequence MRI of the brain was obtained before and after the intravenous administration of 9.0 mL gadolinium based without reported immediate complications.. FINDINGS: No restricted diffusion. No acute intracranial hemorrhage, mass effect, midline shift, hydrocephalus or herniation. Steele-white matter differentiation is normal. Posterior cranial fossa contents demonstrated no signal abnormality or mass effect. Sellar/suprasellar region is normal. Craniocervical junction is intact with normal position of the cerebellar tonsils. No signal abnormality or enhancing lesion in the hippocampi. Slight asymmetric right temporal horn lateral ventricle. Flow-void signal within the main cerebral vessels is normal. There appears to be absent right P1 segment with a robust right posterior communicating artery.. No intra-axial or extra-axial enhancing mass. 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 Correlated clinical scenario. 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 Electronically signed by: Hugh Tate MD 09/25/2025 08:16 AM EST
--- OUTSIDE RECORDS SUMMARY | 2025-09-24 22:36 | XMS_ITS | Patient Health Record ---
Author Organization Lebron Wolff MD Address [address] [place], [place] [id number] Care Team Providers Care Publication Manager Name Role Phone Lebron Wolff Primary Care Provider Allergies No Known Allergies Results Component Value Reference Range Notes Testosterone, Free/Total Reviewed date:02/22/2025 12:31:34 PM Interpretation: Performing Lab:[facility], [address] [place] [phone] Notes/Report: Testosterone, Total 553 502-8063 ng/dL Men with clinically significant hypogonadal symptoms and testosterone values repeatedly in the range of the 200-300 ng/dL or less, may benefit from testosterone treatment after adequate risk and benefits counseling. For additional information, please refer to https://education.[employer].com/faq/F AQ165 (This link is being provided for informational/educatio nal purposes only.) (Note) This test was developed and its analytical performance characteristics have been determined by [facility]. It has not been cleared or approved by the FDA. This assay has been validated pursuant to the CLIA regulations and is used for clinical purposes. Testosterone, Free 60.4 35.0-155.0 pg/mL (Note) This test was developed and its analytical performance characteristics have been determined by [facility]. It has not been cleared or approved by the FDA. This assay has been validated pursuant to the CLIA regulations and is used for clinical purposes. [facility] [address] [address],[address] [facility] [address] Emely Tai MD, PhD THIS TEST WAS PERFORMED AT: [facility] [address] [address] [address] [place] [address] EMELY TAI MD,PHD XR chest 2V Reviewed date:02/15/2025 04:58:32 PM Interpretation: Performing Lab: Notes/Report: [address] [address] XRay Report Signed Patient: Javier Kirby MR#: [id number] : 1990 Acct:[id number] Age/Sex: 34 / M ADM Date: 02/15/25 Loc: HO.XRAY Attending Dr: Lebron Wolff MD Ordering Physician: Lebron Wolff MD Date of Service: 02/15/25 Procedure(s): XR chest 2V Accession Number(s): [id number] cc: Lebron Wolff MD EXAMINATION: XR CHEST [...] Miguel Diaz MD 02/15/2025 02:25 PM EDT RP Dictated By: Miguel Diaz MD Signed By: <Electronically signed by Miguel Diaz MD in OV> 02/15/25 1425 DD/ 1401 TD/TT: 02/15/25 1409 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 Stamping Machine Operator: [address] [address] XRay Report Signed Patient: Javier Kirby MR#: [id number] : 1990 Acct:[id number] Age/Sex: 34 / M ADM Date: 02/15/25 Loc: HO.XRAY Attending Dr: Lebron Wolff MD Ordering Physician: Lebron Wolff MD Date of Service: 02/15/25 Procedure(s): XR t[address] st 2V Accession Number(s): [id number] cc: Lebron Wolff MD EXAMINATION: XR CHEST [...] Miguel Diaz MD 02/15/2025 02:25 PM EDT RP Dictated By: Miguel Diaz MD Signed By: <Electronically signed by Miguel Diaz MD in OV> 02/15/25 1425 DD/ 1401 TD/TT: 02/15/25 1409 Metal Stamping Machine Operator: Urinalysis and Microscopic Reviewed date:04/16/2025 12:34:30 PM Interpretation: Performing Lab:[facility], [address] [place] [phone] Notes/Report: Color Urine Yellow Appearance Urine Clear PH 6.5 5.0-9.0 Glucose Urine UA Negative Negative mg/dL Urine Blood Negative Negative Specific [place] - Urine 1.010 1.005-1.025 Urine Protein Negative Neg-Trace mg/dL Urine Ketones Negative Negative mg/dL Nitrite Urine Negative Negative Leukocyte Esterase Urine Negative Negative RBC Urine 0-2 0-2 /HPF WBC Urine 0-5 0-5 /HPF Squamous Epithelial Cell Urine 0-2 0-2 /HPF Bacteria Urine None Seen None Seen Hyaline Casts Urine 0-2 0-2 /LPF Comprehensive Met. Panel Reviewed date:04/16/2025 04:47:31 PM Interpretation: Performing Lab:[facility], [address] [place] [phone] Notes/Report: Sodium 142 135-145 mmol/L Potassium 3.8 3.3-5.1 mmol/L Chloride 107 96-108 mmol/L Carbon Dioxide 24 22-29 mmol/L Anion Gap 15 12-20 Blood Urea Nitrogen 10 9-16 mg/dL Creatinine 1.08 0.5-1.4 mg/dL Estimated Glomerular Filt Rate > 60 Chronic Kidney Disease: Estimated GFR < 60 mL/min/1.73m2 Severe Kidney Disease: Estimated GFR < 15 mL/min/1.73m2 Glucose Random 107 60-115 mg/dL Calcium 9.2 8.4-10.2 mg/dL Bilirubin Total 1.2 0.0-1.0 mg/dL Aspartate Amino Transferase 24 5-37 U/L Alanine Aminotransferase 39 0-40 U/L Total Protein 6.9 6.5-8.0 g/dL Albumin Level 4.6 3.5-5.0 g/dL Alkaline Phosphatase 51 39-117 U/L Reason For Referral Reason Seizure Diagnosis 1 Seizure (R56.9) Referral Organization Lebron Wolff MD Referring Provider First Name Lebron Referring Provider Last Name New Referring Provider Speciality Internal M edicine Referred Provider Ladonna Britt Referred Provider Specialty Neurology General Notes Amanda Zamarripa 0 04/18/2025 09:01:17 AM >referral info faxed, Amanda Zamarripa 05/20/2025 09:12:41 AM >patient is aware of appt Referral Priority Routine Referral Appointment Date 07/17/2025 Medications Medication SIG (Take, Route, Frequency, Duration) [...] Once a day for 30 day(s) Not-Taking Immunizations Vaccine Route Administration Date Status Comme [...] Problem Status W/U Status Risk Notes Problem [id number] Lymphocytosis (D72.820) Active confirmed Problem Anxiety (82763217) Anxiety (F41.9) Active confirmed Problem Disorder of lumbar disc (479718679) Lumbar disc disease (M51.9) Active confirmed Problem [id number] Dysthymia (F34.1) Active confirmed Problem [id number] Gastroesophageal reflux disease with esophagitis without hemorrhage (K21.00) Active confirmed Problem 12507768 Anxiety, general ized (F41.1) Active confirmed Vital Signs Blood pressure diastolic 66 mm Hg 06/10/2025 prashant ght is down 7 pounds since 04-18-25 Height 69 in 06/10/2025 weight is down 7 pounds since 04-18-25 Blood pressure systolic 102 mm Hg 06/10/2025 weig ht is down 7 pounds since 04-18-25 Weight 196 lbs 06/10/2025 weight is down 7 pounds since 04-18-25 BMI 28.94 kg/m2 06/10/2025 weight is down 7 pounds since 04-18-25 Encounters Encounter Location Date Provider Diagnosis Lebron Wolff MD [address] [place] [phone] 04/18/2025 Lebron Wolff Seizure R56.9 and Adult general medical examination Z00.00 Lebron Wolff MD [address] [place] [address] Drive [address] [place] [id number] 12/21/2024 Lebron Wolff Follow-up exam Z09 and Anxiety, generalized F41.1 Lebron Wolff MD [address] [place] [id number] 02/15/2025 Lebron Wolff Pneumonia J18.9 and Lethargy R53.83 Lebron Wolff MD [address] [place] [id number] 06/10/2025 Lebron Wolff Anxiety F41.9 Lebron Wolff MD [address] [place] [address] Drive [address] [place] [id number] 12/17/2024 Lebron Wolff Assessments Encounter Date Diagnosis (ICD Code) Assessment Notes Treatment Notes Treatment Clinical Notes Section Notes 04/18/2025 Seizure (ICD-10 - R56.9) referral to neurology [facility]. had been on meds in past. have explained that he should not drive for 6 months after having a seizure 04/18/2025 Adult general medical examination (ICD-10 - Z00.00) labs reviewed and discussed with patient 12/21/2024 Follow-up exam (ICD-10 - Z09) is doing well. no symptoms 12/21/2024 Anxiety, generalized (ICD-10 - F41.1) has gotten worse on paxil 10 02/15/2025 Pneumonia (ICD-10 - J18.9) patient verbalized understanding of medication and directions for use 02/15/2025 Lethargy (ICD-10 - R53.83) advised patient to rest, will cpontact office if sx's do not improve 06/10/2025 Anxiety (ICD-10 - F41.9) patient verbalized understanding of medication and directions for use Plan Of Treatment Pending Test Test Name Order Date XR CHEST 2 VIEW PA & LAT 06/12/2024 XR CHEST 2 VIEW PA & LAT 02/15/2025 XR GI SERIES 12/09/2022 Next Appt Details Provider Name:Lebron Melendez ier, 10/08/2025 02:00:00 PM, [address] [place] [address], [address], [phone], Provider Name:Lebron Melendez ier, 04/10/2026 08:00:00 AM, [address] [place] [address], [address] [address], [place], [place], [phone], Provider Name:Lebron Melendez ier, 04/22/2026 02:30:00 PM, [address] [place] [address], [address], [phone], Insurance Providers Payer Name Payer Address Payer Phone Subscriber Number Group Number Insured Name Patient Relationship to Insured Coverage Start Date Coverage End Date [facility] Direct [address] [place] [phone] [id number] Javier Kirby Self - patient is the insured Medical (General) History Medical History History ICD Code history of petit mal and gran mal. manley
== END 2025-09-24 15:46 | disposition home or self-care (01) ==
LOC: HO.MRI 15:45
PROVIDERS: PCP Internal Medicine; Visit Provider Nurse Practitioner
DX: G40.909 Epilepsy, unspecified, not intractable, without status epilepticus (principal)
CPT/HCPCS: 70553; A9585

== ENCOUNTER 2025-10-04 15:29 | Outpatient (AMB) | payer OTHER, SELFPAY ==
--- OUTSIDE RECORDS SUMMARY | 2024-06-12 05:30 | XMS_ITS ---
Author Organization Lebron Wolff MD Address [address] [place] [phone] Care Team Providers Care Fermentologist Name Role Phone Lebron Wolff Primary Care [...] Problem Status W/U Status Risk Notes Problem [id number] Anxiety, generalized (F41.1) Active confirmed Vital Signs Blood pressure systolic 96 mm Hg 06/12/20 24 Blood pressure diastolic 60 mm Hg 024 Height 69 in 06/12/2024 Weight 214 lbs 06/12/2024 BMI 31.60 kg/m2 06/12/2024 weight is up 5 pounds since 03-08-24 Encounters Encounter Location Date Provider Diagnosis Lebron Wolff MD [address] [place] [phone] 06/12/2024 Lebron Wolff Respiratory infection J98.8 and [...] Provider Name:Lebron Melendez ier, 10/08/2025 02:00:00 PM, [address] [place] [address], [address] [place] [address], [phone], Provider Name:Lebron Melendez ier, 04/10/2026 08:00:00 AM, [address] [place] [address], Suite [facility], [place], [place], [phone], Provider Name:Lebron Melendez ier, 04/22/2026 02:30:00 PM, [address] [place] [address], [address] [place] [address], [phone], Progress Notes * James WYMANOB:1990 ( 34 yo M)Acc No.[id number]:06/12/2024 Progress Notes Patient: Javier Saab Provider: Ellyn Wolff MD :1990 A ge:33 Y S ex:Male Date:06/12/2024 Address:[address] [place], [place] [phone] Subjective: * Chief Complaints: * 3 month [...] MD Date: 0 06/12/2024 Generated for Luciai sehreen/Elvia/eTransmitting on: 1 12/05/2024 04:33 PM EST History and Physical Notes * [...]
--- OUTSIDE RECORDS SUMMARY | 2024-07-09 12:15 | XMS_ITS ---
Author Organization Lebron Wolff MD Address [address] [place] [address] [place] [phone] Care Team Providers Care Talent Development Analyst Name Role Phone Lebron Wolff Primary Care Provider [phone] REASON FOR VISIT 4 week Encounters Encounter Location Date Provider Diagnosis Lebron Wolff MD [address] [place] [address] [place] [phone] 07/09/2024 Lebron Wolff Plan Of Treatment Next Appt Details Provider Name:Lebron Melendez ier, 10/08/2025 02:00:00 PM, [address] [place] [address], Suite [facility] [place], [place], [place], [phone], Provider Name:Lebron yi, 04/10/2026 08:00:00 AM, [address] [place] [address], [address], [phone], Provider Name:Lebron Melendez ier, 04/22/2026 02:30:00 PM, [address] [place] [address], [address], [phone], Progress Notes * aJmes WYMANOB:1990 ( 35 yo M)Acc No.[id number]:07/09/2024 Progress Notes Patient: Bri RUBENSJavier CEJA Provider: Ellyn Wolff MD :1990 A ge:34 Y S ex:Male Date:07/09/2024 Address:[address] [place] [address] [place] [address] Subjective: * Chief Complaints: * 1 . [...] 0 07/09/2024 Generated for Deb regan/Elvia/Alvaradoitting on: 12/05/2024 04:33 PM EST
--- OUTSIDE RECORDS SUMMARY | 2024-12-17 02:53 | XMS_ITS ---
Author Organization Lebron Wolff MD Address [address] [place] [address] [place] [phone] Care Team Providers Care Auto Bumper Straightener Name Role Phone Lebron Wolff Primary Care Provider [phone] REASON FOR VISIT ER visit rec'd was put on Azithromycin Amoxicillin. Encounters Encounter Location Date Provider Diagnosis Lebron Wolff MD [address] [place] [address] [place] [phone] 12/17/2024 Lebron Wolff Plan Of Treatment Next Appt Details Provider Name:Lebron Melendez ier, 10/08/2025 02:00:00 PM, [address] [place] [address], [address], [phone], Provider Name:Lebron Melendez ier, 04/10/2026 08:00:00 AM, [address] [place] [address], [address], [phone], Provider Name:Lebron Melendez ier, 04/22/2026 02:30:00 PM, [address] [place] [address], [address], [phone], Progress Notes * James WYMANOB:1990 ( 34 yo M)Acc No.[id number]:12/17/2024 Patient: Bri APOLONIAOrquideade :1990 A ge:34 Y S ex:Male Address:[address] [place] [address], [place], [address] * true * Date: Generated for Deb regan/Elvia/Leilani on: 1 12/05/2024 04:33 PM EST
--- OUTSIDE RECORDS SUMMARY | 2024-12-21 05:30 | XMS_ITS ---
Author Organization Lebron Wolff MD Address [address] [place] [phone] Care Team Providers Care Contact Lens Cutter Name Role Phone Lebron Wolff Primary Care Provider Allergies No Known Allergies REASON FOR VISIT F/U Er Pneumonia Medications Medication SIG (Take, Route, Frequency, Duration) Notes Start Date End Date Status Paxil 20 MG 1 tablet in the morning Orally Once a day for 30 days 06/12/2024 Active Sulindac 150 MG 1 tablet with food Orally Twice a day for 30 day(s) Not-Taking predniSONE 10 MG 1 tablet Orally Once a day for 30 day(s) Active Cyclobenzaprine HCl 10 MG 1 tablet at be dtime as needed Orally Once a day for 30 day(s) Not-Taking Vital Signs Blood pressure systolic 102 mm Hg 12/22/19 25 Blood pressure diastolic 70 mm Hg 025 Height 69 in 12/21/2024 Weight 215 lbs 12/21/2024 BMI 31.75 kg/m2 12/21/2024 Encounters Encounter Location Date Provider Diagnosis Lebron Wolff MD [address] [place] [phone] 12/21/2024 Lebron Wolff Follow-up exam Z09 and Anxiety, generalized F41.1 Assessments Encounter Date Diagnosis (ICD Code) Assessment Notes Treatment Notes Treatment Clinical Notes Section Notes 12/21/2024 Follow-up exam (ICD-10 - Z09) is doing well. no symptoms 12/21/2024 Anxiety, generalized (ICD-10 - F41.1) has gotten worse on paxil 10 Plan Of Treatment Medication Medication Name Sig Start Date Stop Date Notes Paxil 20 MG 1 tablet in the morn ing Orally Once a day for 30 days 06/12/2024 Treatment Notes Assessment Notes Follow-up exam is doing well. no sy mptoms Anxiety, generalized has gotten worse on paxil 10 Next Appt Details Provider Name:Lebron Melendez ier, 10/08/2025 02:00:00 PM, [address], [address], [place], [place], [phone], Provider Name:Lebron Melendez ier, 04/10/2026 08:00:00 AM, [address], [address], [place], [place], [phone], Provider Name:Lebron Melendez ier, 04/22/2026 02:30:00 PM, [address], [address], [place], [place], [phone], Progress Notes * GAROOrquidea GARCÍAMiguel AOB:1990 ( 34 yo M)Acc No.[id number]:12/21/2024 Progress Notes Patient: Javier HASSAN Provider: Ellyn Wolff MD :1990 A ge:34 Y S ex:Male Date:12/21/2024 Address:[address] [place], [place] [phone] Subjective: * Chief Complaints: * F /U Er Pneumonia * HPI: S ymptom(s): patient is a 34 yo male here for follow up from er. was feeling weak and dizzy. is all better now. had sob. * ROS: G eneral/Constitutional: Denies C hills. D enies F atigue. D enies F ever. D enies H eadache. E NT: Patient denies d ecreased sense of smell, any loss of taste, sore throat. D enies S ore throat. R espiratory: Denies C ough. D enies S hortness of breath at rest. D enies S hortness of breath with exertion. G astrointestinal: Denies D iarrhea. D enies N ausea. M usculoskeletal: Patient denies m uscle aches. P eripheral Vascular: Patient denies r ed and blue toes. P sychiatric: Admits A nxiety. D enies D epressed mood. A dmits D ifficulty sleeping. * Medical History: * Surgical History: * Hospitalization/Major Diagno stic Procedure: * Medications: T akingpredniSONE 10 MG Tablet 1 tablet Orally Once a day Paxil 10 MG Tablet 1 tablet in the morning Orally Once a day Taking predniSONE 10 MG Tablet 1 tablet Orally Once a day Taking Paxil 10 MG Tablet 1 tablet in the morning Orally Once a day Not-Taking/PRNCyclobenzaprine HCl 10 MG Tablet 1 tablet at bedtime as needed Orally Once a day Sulindac 150 MG Tablet 1 tablet with food Orally Twice a day Not-Taking/PRN Cyclobenzaprine HCl 10 MG Tablet 1 tablet at bedtime as needed Orally Once a day Not-Taking/PRN Sulindac 150 MG Tablet 1 tablet with food Orally Twice a day * Allergies: N .K.D.A.yes[Allergies Verified] Objective: * Vitals: H t: 69, Wt: 215, BMI:31.75, BP:102/70, Wt-k.52. * Examination: G eneral Examination: GENERAL APPEARANCE: a lert, well hydrated, in no distress.? HEAD: n ormocephalic. SKIN: g ood turgor. HEART: n o murmurs, rubs, gallops, regular rate and rhythm.? LUNGS: n o wheezes, rales, rhonchi. Assessment: * Assessment: 1. A nxiety, generalized - F41.1 (Primary) 2 . F ollow-up exam - Z09 ? Plan: * Treatment: 2. F ollow-up exam Notes: is doing well. no symptoms * Procedure Codes: * * Sign off status: Completed true * Provider: Ellyn Wolff MD Date: 0 12/21/2024 Generated for Deb regan/Elvia/Leilani on: 1 12/05/2024 04:34 PM EST History and Physical Notes * HPI (History of Present Illness) Category Sub-Category Detail Notes Category Not es Symptom(s) patient is a 34 yo male here for follow up from er. was feeling weak and dizzy. is all better now. had sob Examination Category Sub-Category Detail Notes Category Not es General Examination GENERAL APPEARANCE: alert, w ell hydrated, in no distress HEAD: normocephalic HEART: no murmurs, rubs, ga llops, regular rate and rhythm LUNGS: no wheezes, rales, r honchi SKIN: good turgor
--- OUTSIDE RECORDS SUMMARY | 2025-02-15 08:30 | XMS_ITS ---
Author Organization Lebron Wolff MD Address [address] [place], [place] [phone] Care Team Providers Care U.S. Revenue Officer Name Role Phone Lebron Wolff Primary Care Provider Allergies No Known Allergies Results Component Value Reference Range Notes Testosterone, Free/Total Reviewed date:02/22/2025 12:31:34 PM Interpretation: Performing Lab:[facility], [address] [place] [phone] Notes/Report: Testosterone, Total 783 373-7730 ng/dL Men with clinically significant hypogonadal symptoms and testosterone values repeatedly in the range of the 200-300 ng/dL or less, may benefit from testosterone treatment after adequate risk and benefits counseling. For additional information, please refer to https://education.[employer] .[employer]/faq/DVR427 (This link is being provided for informational/educational purposes only.) (Note) This test was developed and its analytical performance characteristics have been determined by [employer]. It has not been cleared or approved by the FDA. This assay has been validated pursuant to the CLIA regulations and is used for clinical purposes. Testosterone, Free 60.4 35.0-155.0 pg/mL (Note) This test was developed and its analytical performance characteristics have been determined by [employer]. It has not been cleared or approved by the FDA. This assay has been validated pursuant to the CLIA regulations and is used for clinical purposes. [facility] [address] [address],[address] [facility] [address] Emely Tai MD, PhD THIS TEST WAS PERFORMED AT: [facility] [address] [address] [address] [place] [address] EMELY TAI MD,PHD REASON FOR VISIT DISCUSS PROBLEMS SINCE HAVING PNEUMONIA, Feels like he did when he had pneumonia SOB Covid negativethis AM Medications Medication SIG (Take, Route, Frequency, Duration) Notes Start Date End Date Status Sulindac 150 MG 1 tablet with food Orally Twice a day for 30 day(s) Not-Taking Cyclobenzaprine HCl 10 MG 1 tablet at be dtime as needed Orally Once a day for 30 day(s) Not-Taking Albuterol Sulfate HFA 108 (90 Base) MCG/ACT 1 puff as needed Inhalation every 4 hrs for 30 days 02/15/2025 Active Zithromax Z-Jimmy 250 MG 2 tablet on the f irst day, then 1 tablet daily for 4 days Orally Once a day for 5 day(s) 02/15/2025 Active Vital Signs Blood pressure systolic 112 mm Hg 02/16/20 25 Blood pressure diastolic 64 mm Hg 025 Height 69 in 02/15/2025 Weight 218 lbs 02/15/2025 BMI 32.19 kg/m2 02/15/2025 weight isup 3 pounds since Encounters Encounter Location Date Provider Diagnosis Lebron Wolff MD [address] [place] [address] Drive [address] [place], [place] [phone] 02/15/2025 Lebron Wolff Pneumonia J18.9 and Lethargy R53.83 Assessments Encounter Date Diagnosis (ICD Code) Assessment Notes Treatment Notes Treatment Clinical Notes Section Notes 02/15/2025 Pneumonia (ICD-10 - J18.9) patient verbalized understanding of medication and directions for use 02/15/2025 Lethargy (ICD-10 - R53.83) advised patient to rest, will cpontact office if sx's do not improve Plan Of Treatment Medication Medication Name Sig Start Date Stop Date Notes Albuterol Sulfate HFA 108 (9 0 Base) MCG/ACT 1 puff as needed Inhalation every 4 hrs for 30 days 02/15/2025 Zithromax Z-Jimmy 250 MG 2 tablet on the f irst day, then 1 tablet daily for 4 days Orally Once a day for 5 day(s) 02/15/2025 Treatment Notes Assessment Notes Pneumonia patient verbalized u nderstanding of medication and directions for use Lethargy advised patient to r est, will cpontact office if sx's do not improve Pending Test Test Name Order Date XR CHEST 2 VIEW PA & LAT 02/15/2025 Next Appt Details Provider Name:Lebron Melendez ier, 10/08/2025 02:00:00 PM, [address], [address], [place], [place], [phone], Provider Name:Lebron Melendez ier, 04/10/2026 08:00:00 AM, [address], [address], [place], [place], [phone], Provider Name:Lebron Melendez ier, 04/22/2026 02:30:00 PM, [address], [address], [place], [place], [phone], Progress Notes * Orquidea WYMANMiguel AOB:1990 ( 34 yo M)Acc No.[id number]:02/15/2025 Progress Notes Patient: Javier HASSAN Provider: Ellyn Wolff MD :1990 A ge:34 Y S ex:Male Date:02/15/2025 Address:[address] [place], [place] [phone] Subjective: * Chief Complaints: * D ISCUSS PROBLEMS SINCE HAVING PNEUMONIAFeels like he did when he had pneumonia SOB Covid negative this AM * HPI: S ymptom(s): patient is a 34 yo male here to discuss issues related to recent pneumonia diagnosis/ feels like he did when he had pneumonia. has been going on for one week. short of breath is bad./ since november lost scence of smell . feeling tired all the time and brain fog. wants testosterone. * ROS: G eneral/Constitutional: Denies C hills. D enies F atigue. D enies F ever. D enies H eadache. E NT: Denies S ore throat. R espiratory: Admits C ough. A dmits S hortness of breath at rest. A dmits S hortness of breath with exertion. A dmits S putum production. A dmits W hedewayneing. G astrointestinal: Denies D iarrhea. D enies N ausea. * Medical History: * Surgical History: * Hospitalization/Major Diagno stic Procedure: * Medications: N ot-Taking/PRNCyclobenzaprine HCl 10 MG Tablet 1 tablet at bedtime as needed Orally Once a day Sulindac 150 MG Tablet 1 tablet with food Orally Twice a day Not-Taking/PRN Cyclobenzaprine HCl 10 MG Tablet 1 tablet at bedtime as needed Orally Once a day Not-Taking/PRN Sulindac 150 MG Tablet 1 tablet with food Orally Twice a day DiscontinuedpredniSONE 10 MG Tablet 1 tablet Orally Once a day Paxil 20 MG Tablet 1 tablet in the morning Orally Once a day Medication List reviewed and reconciled with the patientDiscontinued predniSONE 10 MG Tablet 1 tablet Orally Once a day Discontinued Paxil 20 MG Tablet 1 tablet in the morning Orally Once a day Medication List reviewed and reconciled with the patient * Allergies: N .K.D.A.yes[Allergies Verified] Objective: * Vitals: H t: 69, Wt: 218, BMI:32.19, BP:112/64, Wt-k.88. weight isup 3 pounds since 12-21-24. * Examination: G eneral Examination: GENERAL APPEARANCE: w ell developed, well nourished. HEAD: n ormocephalic. SKIN: g ood turgor. HEART: n o murmurs, rubs, gallops, regular rate and rhythm.? LUNGS: n o wheezes, rales, rhonchi, good air movement, clear to auscultation bilaterally. Assessment: * Assessment: 1. P neumonia - J18.9 (Primary) 2 . L ethargy - R53.83 Plan: * Treatment: 2. L ethargy Notes: advised patient to rest, will cpontact office if sx's do not improve * Procedure Codes: 3 6415 VENIPUNCT, ROUTINE* * * Sign off status: Completed true * Provider: Ellyn Wolff MD Date: 0 02/15/2025 Generated for Deb regan/Elvia/eTransmitting on: 1 12/05/2024 04:34 PM EST History and Physical Notes * HPI (History of Present Illness) Category Sub-Category Detail Notes Category Not es Symptom(s) patient is a 34 yo male here to discuss issues related to recent pneumonia diagnosis/ feels like he did when he had pneumonia. has been going on for one week. short of breath is bad./ since november lost scence of smell . feeling tired all the time and brain fog. wants testosterone Examination Category Sub-Category Detail Notes Category Not es General Examination GENERAL APPEARANCE: well developed , well nourished HEAD: normocephalic HEART: no murmurs, rubs, ga llops, regular rate and rhythm LUNGS: no wheezes, rales, r honchi, good air movement, clear to auscultation bilaterally SKIN: good turgor
--- OUTSIDE RECORDS SUMMARY | 2025-04-12 02:00 | XMS_ITS ---
Author Organization Lebron Wolff MD Address [address] [place], [place] [id number] Care Team Providers Care Lime Kiln Worker Name Role Phone Lebron Wolff Primary Care Provider Results Component Value Reference Range Notes Complete Blood Count Auto Di ff Reviewed date:04/16/2025 12:35:07 PM Interpretation: Performing Lab:[facility], [address] [place] [phone] Notes/Report: White Blood Count 6.7 4.8-10.8 X10*3/uL Red Blood Count 5.20 4.60-5.80 X10*6/uL Hemoglobin 16.5 14.0-18.0 g/dl Hematocrit 45.5 42.0-52.0 % Mean Corpuscular Volume 87.5 80.0-98.0 fL Mean Corpuscular Hemoglobin 31.7 27.0-33.0 pg Mean Corpuscular HGB Conc 36.3 31.0-36.0 g/dl Red Cell Distribution Width 11.8 11.0-16.0 % Platelet Count 211 160-400 X10*3/uL Mean Platelet Volume 10.5 9.4-12.4 fL Neutrophils Percent Auto 61.9 45-73 % Imm Gran Pct Auto 0.1 0.0-0.4 % Lymphocytes Percent Auto 29.3 20-40 % Monocytes Percent Auto 8.0 2-11 % Eosinophils Percent Auto 0.3 0-4 % Basophils Percent Auto 0.4 0-2 % NRBC Pct Auto 0.0 0.0-0.2 /100WBC Neutrophils Absolute Auto 4.2 2.0-8.3 x10*3/u L Imm Gran Abs Auto 0.01 0.00-0.03 X10*3/uL Lymphocytes Absolute Auto 2.0 1.2-4.9 X10*3/u L Monocytes Absolute Auto 0.5 0.1-1.2 X10*3/uL Eosinophils Absolute Auto 0.0 0.0-0.4 X10*3/u L Basophils Absolute Auto 0.0 0.0-0.2 X10*3/uL NRBC Abs Auto 0.000 0.0-0.012 X10*3/uL Lipid Panel Reviewed date:04/16/2025 12:35:15 PM Interpretation: Performing Lab:[facility], [address] [place] [phone] Notes/Report: Triglycerides 115 <150 mg/dL Desirable Triglyceride: less than 150 mg/dL Borderline High Triglyceride 150-199 mg/dL High Triglyceride: 200-499 mg/dL Very High Triglyceride: greater than or equal to 5OO mg/dL Cholesterol 210 <200 mg/dL Desirable Cholesterol: less than 200 mg/dL Borderline High Cholesterol: 200-239 mg/dL High Cholesterol: greater than 239 mg/dL LDL Cholesterol Calculated 138 <100 mg/dL Desirable LDL: less than 100 mg/dL Near Optimal/Above Optimal LDL: 110-129 mg/dL Borderline High LDL: 130-159 mg/dL High LDL: 160-189 mg/dL Very High LDL: greater than or equal to 190 mg/dL HDL Cholesterol 49 >40 mg/dL Desirable HDL: greater than 40 mg/dL Note: This HDL assay may give artificially low results in patients with liver disease. REASON FOR VISIT yearly fasting labs Encounters Encounter Location Date Provider Diagnosis Lebron Wolff MD [address] [facility] [address] [place], [place] [id number] 04/12/2025 Lebron Wolff Blood tests for routine general physical examination Z00.00 and Lymphocytosis D72.820 Assessments Encounter Date Diagnosis (ICD Code) Assessment Notes Treatment Notes Treatment Clinical Notes Section Notes 04/12/2025 Blood tests for routine general physical examination (ICD-10 - Z00.00) 04/12/2025 Lymphocytosis (ICD-10 - D72.820) Plan Of Treatment Pending Test Test Name Order Date Urinalysis and Microscopic 04/12/2025 Comprehensive [place]. Panel Fast Next Appt Details Provider Name:Lebron Melendez ier, 10/08/2025 02:00:00 PM, [address], [address], [place], [phone], Provider Name:Lebron Melendez ier, 04/10/2026 08:00:00 AM, [address], [address], [place], [phone], Provider Name:Lebron Melendez ier, 04/22/2026 02:30:00 PM, [address], [address], [place], [place], [phone], Progress Notes * James WYMANOB:1990 ( 35 yo M)Acc No.[id number]:04/12/2025 Progress Note Patient: aJvier HASSAN Provider: Ellyn Wolff MD :1990 A ge:34 Y S ex:Male Date:04/12/2025 Address:[address] [place] [address] Subjective: * Chief Complaints: * 1 . Yearly fasting labs. * Medical History: Objective: * Vitals: Assessment: * Assessment: 1. B lood tests for routine general physical examination - Z00.00 (Primary) 2 .?Lymphocytosis - D72.820 Plan: * Treatment: 2. L ymphocytosis L AB: Urinalysis and Microscopic L AB: Comprehensive [place]. Panel Fast L AB: Complete Blood Count Auto Diff (Collection Date & Time - 04/13/2025 10:58 AM) L AB: Lipid Panel (Collection Date & Time - 04/13/2025 10:58 AM) * * The named appointment provid er may or may not be the originator of this progress note, and it is not deemed complete until electronically signed by the appointment provider. Sign off status: Pending * Provider: Ellyn Wolff MD Date: 0 04/12/2025 Generated for Deb regan/Elvia/eTvigneshsmitting on: 1 12/05/2024 04:34 PM EST
--- OUTSIDE RECORDS SUMMARY | 2025-04-18 03:30 | XMS_ITS ---
Author Organization Lebron Wolff MD Address [address] [place], [place] [phone] Care Team Providers Care Apparatus Engineering Technologist Name Role Phone Lebron Wolff Primary Care Provider Allergies No Known Allergies Reason For Referral Reason Seizure Diagnosis 1 Seizure (R56.9) Referral Organization Lebron Wolff MD Referring Provider First Name Lebron Referring Provider Last Name New Referring Provider Speciality Internal M edicine Referred Provider Ladonna Britt Referred Provider Specialty Neurology General Notes Amanda Zamarripa 0 04/18/2025 09:01:17 AM >referral info faxedMarilou Annette 05/20/2025 09:12:41 AM >patient is aware of appt Referral Priority Routine Referral Appointment Date 07/17/2025 REASON FOR VISIT annual visit, Patient thinks he hd a seizure last week right before bed Medications Medication SIG (Take, Route, Frequency, Duration) Notes Start Date End Date Status Albuterol Sulfate HFA 108 (90 Base) MCG/ACT 1 puff as needed Inhalation every 4 hrs for 30 days 02/15/2025 Active Cyclobenzaprine HCl 10 MG 1 tablet at be dtime as needed Orally Once a day for 30 day(s) Not-Taking Sulindac 150 MG 1 tablet with food Orally Twice a day for 30 day(s) Not-Taking Social History Tobacco Use: Social History Observation [...] ast year? No Points 0 Interpretation Negative Vital Signs Blood pressure systolic 98 mm Hg 04/18/20 25 Blood pressure diastolic 60 mm Hg 025 Height 69 in 04/18/2025 Weight 203 lbs 04/18/2025 BMI 29.97 kg/m2 04/18/2025 weight is down 15 pounds sin 5-2-25 Encounters Encounter Location Date Provider Diagnosis Lebron Wolff MD [address] [place], [place] [id number] 04/18/2025 Lebron Wolff Seizure R56.9 and Adult general medical examination Z00.00 Assessments Encounter Date Diagnosis (ICD Code) Assessment Notes Treatment Notes Treatment Clinical Notes Section Notes 04/18/2025 Seizure (ICD-10 - R56.9) referral to neurolog[place] [facility] [place] had been on meds in past. have explained that he should not drive for 6 months after having a seizure 04/18/2025 Adult general medical examination (ICD-10 - Z00.00) labs reviewed and discussed with patient Plan Of Treatment Treatment Notes Assessment Notes Seizure referral to neurolog y [facility] [place] had been on meds in past. have explained that he should not drive for 6 months after having a seizure Adult general medical examination labs alicia wagoner and discussed with patient Referrals Referral Date Details 04/18/2025 04/18/2025, Seizure, Ladonna Lorenza Next Appt Details Follow Up: , Reason: is movi ng to [place] Provider Name:Lebron yi, 10/08/2025 02:00:00 PM, [address], [address], [place], [place], [phone], Provider Name:Lebron yi, 04/10/2026 08:00:00 AM, [address], [address], [place], [place], [phone], Provider Name:Lebron yi, 04/22/2026 02:30:00 PM, [address], [address], [place], [place], [phone], Progress Notes * James WYMANOB:1990 ( 34 yo M)Acc No.[id number]:04/18/2025 Progress Notes Patient: Javier HASSAN Provider: Ellyn Wolff MD :1990 A ge:34 Y S ex:Male Date:04/18/2025 Address:[address] [place], [place] [id number] Subjective: * Chief Complaints: * A nnual visitPatient thinks he hd a seizure last week right before bed * HPI: D epression Screening: PHQ-9 L ittle interest or pleasure in doing things S everal days, F eeling down, depressed, or hopeless S everal days, T rouble falling or staying asleep, or sleeping too much S everal days, F eeling tired or having little energy N early every day, P oor appetite or overeating N early every day, F eeling bad about yourself or that you are a failure, or have let yourself or your family down N early every day, T rouble concentrating on things, such as reading the newspaper or watching television S everal , M oving or speaking so slowly that other people could have noticed; or the opposite, being so fidgety or restless that you have been moving around a lot more than usual S everal days, T houghts that you would be better off or of hurting yourself in some way N ot at all, T otal Score 1 4, I nterpretation M oderate Depression. I nterpretation and Intervention D epression Screening Findings N egative, F ollow-Up for Depression : review of PHQ-9 found negative result, no follow-up needed. C ommunication Needs: Communication Needs D oes the patient have a hearing impairment N o, D oes the patient have a vision impairment? N o, D oes the patient have a cognition impairment? N o. S SIENA Questions: SDOH Questions I n the past year have you been worried about losing housing? N o, I n the past year have you or any family members you live with been unable to get any of the following when it was really needed? Check all that apply: N one. S ymptom(s): patient is a 34 yo male here for annual visit with review of recent labs and follow up of chronic issues h ad question of seizure. last week. eyes rolled back and was staring. not responsive. went to sleep last seizure was 10 years ago. had 2 days in a row. * ROS: G eneral/Constitutional: Change in appetite d enies. C hills d enies. F ever d enies. O phthalmologic: Blurred vision d enies. D ischarge d enies. P ain d enies. E NT: Decreased hearing d enies. S ore throat d enies.?Swollen glands d enies. E ndocrine: Cold intolerance d enies. E xcessive thirst d enies. H eat intolerance d enies. W eight loss d enies. R espiratory: Cough d enies. S hortness of breath at rest d enies. S hortness of breath with exertion d enies. W heezing d enies. C ardiovascular: Chest pain at rest d enies. C hest pain with exertion?denies. I rregular heartbeat d enies. S hortness of breath d enies. ? G astrointestinal: Abdominal pain d enies. C hange in bowel habits d enies. D iarrhea d enies. N ausea d enies. R ectal bleeding d enies. V omiting d enies . G enitourinary: Blood in urine d enies. D ifficulty urinating d enies. F requent urination d enies. M usculoskeletal: Painful joints d enies. W eakness d enies. ? S kin: Dry skin d enies. I tching d enies. D enies?Mole(s), changes in moles, new moles or any lesions of concern. D enies P hotosensitivity. R daisy d enies. N eurologic: Dizziness d enies. F ainting d enies. H eadache?denies. * Medical History: * Surgical History: * Hospitalization/Major Diagno stic Procedure: * Family History: F ather: 63 yrs. M other: 53 yrs. 1 brother(s) , 2 sister(s) . 2 son(s) . . Mother- [place] Father Dementia Pneumonia No pertinent family medical history, father alcoholic, No pertinent family medical history, No pertinent family medical history. * Social History: T obacco Use: T obacco Use/Smoking P atient is a n onsmoker, A dditional Findings: Tobacco Non-User C urrent non-smoker, currently using no form of tobacco. D rugs/Alcohol: A lcohol Screen D id you have a drink containing alcohol in the past year? N o, P oints 0 , I nterpretation N egative. M iscellaneous: C affeine: yes, frequency:, 1-2 cups per day. Children: yes. Exercise: yes, PT weights and walks 4 miles a day. Housing: renting. Living with: spouse. Marital status: . Occupation: weeks/months/years, works full-time but out on [employer]. Pets: none, cats: dogs:. Travel outside of the [place]: no. * Medications: T akingAlbuterol Sulfate HFA 108 (90 Base) MCG/ACT Aerosol Solution 1 puff as needed Inhalation every 4 hrs Taking Albuterol Sulfate HFA 108 (90 Base) MCG/ACT Aerosol Solution 1 puff as needed Inhalation every 4 hrs Not-Taking/PRNCyclobenzaprine HCl 10 MG Tablet 1 tablet at bedtime as needed Orally Once a day Sulindac 150 MG Tablet 1 tablet with food Orally Twice a day Not-Taking/PRN Cyclobenzaprine HCl 10 MG Tablet 1 tablet at bedtime as needed Orally Once a day Not-Taking/PRN Sulindac 150 MG Tablet 1 tablet with food Orally Twice a day DiscontinuedZithromax Z-Jimmy 250 MG Tablet 2 tablet on the first day, then 1 tablet daily for 4 days Orally Once a day Medication List reviewed and reconciled with the patientDiscontinued Zithromax Z-Jimmy 250 MG Tablet 2 tablet on the first day, then 1 tablet daily for 4 days Orally Once a day Medication List reviewed and reconciled with the patient * Allergies: N .K.D.A.yes[Allergies Verified] Objective: * Vitals: H t: 69, Wt: 203, BMI:29.97, BP:98/60, Wt-k.08. weight is down 15 pounds since 02-15-25. * P ast Orders: L ab:Urinalysis and Microscopic (Order Date - 04/13/2025) (Collection Date & Time - 04/13/2025 10:58 AM) Value Reference Range Color Urine Yellow - RBC Urine 0-2 0-2 - /HPF Appearance Urine Clear - PH 6.5 5.0-9.0 - Glucose Urine UA Negative Negative - mg/dL Urine Blood Negative Negative - Specific [place] - Urine 1.010 1.005-1.025 - Urine Protein Negative Neg-Trace - mg/dL Urine Ketones Negative Negative - mg/dL Nitrite Urine Negative Negative - Leukocyte Esterase Urine Negative Negative - WBC Urine 0-5 0-5 - /HPF Squamous Epithelial Cell Urine 0-2 0-2 - /HP F Bacteria Urine None Seen None Seen - Hyaline Casts Urine 0-2 0-2 - /LPF L ab:Complete Blood Count Auto Diff (Order Date - 04/12/2025) (Collection Date & Time - 04/13/2025 10:58 AM) Value Reference Range White Blood Count 6.7 4.8-10.8 - X10*3/uL Red Blood Count 5.20 4.60-5.80 - X10*6/uL Hemoglobin 16.5 14.0-18.0 - g/dl Hematocrit 45.5 42.0-52.0 - % Mean Corpuscular Volume 87.5 80.0-98.0 - fL Mean Corpuscular Hemoglobin 31.7 27.0-33.0 - pg Mean Corpuscular HGB Conc 36.3 H 31.0-36.0 - g/ dl Red Cell Distribution Width 11.8 11.0-16.0 - % Platelet Count 211 160-400 - X10*3/uL Mean Platelet Volume 10.5 9.4-12.4 - fL Neutrophils Percent Auto 61.9 45-73 - % Imm Gran Pct Auto 0.1 0.0-0.4 - % Lymphocytes Percent Auto 29.3 20-40 - % Monocytes Percent Auto 8.0 2-11 - % Eosinophils Percent Auto 0.3 0-4 - % Basophils Percent Auto 0.4 0-2 - % NRBC Pct Auto 0.0 0.0-0.2 - /100WBC Neutrophils Absolute Auto 4.2 2.0-8.3 - x10* 3/uL Imm Gran Abs Auto 0.01 0.00-0.03 - X10*3/uL Lymphocytes Absolute Auto 2.0 1.2-4.9 - X10* 3/uL Monocytes Absolute Auto 0.5 0.1-1.2 - X10*3/ uL Eosinophils Absolute Auto 0.0 0.0-0.4 - X10* 3/uL Basophils Absolute Auto 0.0 0.0-0.2 - X10*3/ uL NRBC Abs Auto 0.000 0.0-0.012 - X10*3/uL L ab:Lipid Panel (Order Date - 04/12/2025) (Collection Date & Time - 04/13/2025 10:58 AM) Value Reference Range Triglycerides 115 <150 - mg/dL Cholesterol 210 H <200 - mg/dL LDL Cholesterol Calculated 138 H <100 - mg/dL HDL Cholesterol 49 >40 - mg/dL L ab:Comprehensive Met. Panel (Order Date - 04/13/2025) (Collection Date & Time - 04/13/2025 10:58 AM) Value Reference Range Sodium 142 135-145 - mmol/L Bilirubin Total 1.2 H 0.0-1.0 - mg/dL Aspartate Amino Transferase 24 5-37 - U/L Alanine Aminotransferase 39 0-40 - U/L Total Protein 6.9 6.5-8.0 - g/dL Albumin Level 4.6 3.5-5.0 - g/dL Alkaline Phosphatase 51 39-117 - U/L Potassium 3.8 3.3-5.1 - mmol/L Chloride 107 96-108 - mmol/L Carbon Dioxide 24 22-29 - mmol/L Anion Gap 15 12-20 - Blood Urea Nitrogen 10 9-16 - mg/dL Creatinine 1.08 0.5-1.4 - mg/dL Estimated Glomerular Filt Rate > 60 - Glucose Random 107 60-115 - mg/dL Calcium 9.2 8.4-10.2 - mg/dL L ab:Testosterone, Free/Total (Order Date - 02/15/2025) (Collection Date & Time - 02/15/2025 01:30 AM) Value Reference Range Testosterone, Total 154 840-1937 - ng/dL Testosterone, Free 60.4 35.0-155.0 - pg/mL * Examination: G eneral Examination: GENERAL APPEARANCE: w ell developed, well nourished, in no acute distress. HEAD: n ormocephalic, atraumatic. EYES: p upils equal, round, reactive to light and accommodation, sclera non-icteric. EARS: n ormal. ORAL CAVITY: m ucosa moist. THROAT: c lear. NECK/THYROID: n mauro supple, full range of motion, no cervical lymphadenopathy, no bruits. SKIN: w arm and dry, no suspicious lesions. HEART: r egular rate and rhythm, S1, S2 normal, no murmurs.? LUNGS: c lear to auscultation bilaterally. ABDOMEN: s oft, nontender, nondistended, bowel sounds present, normal, no organomegaly , no masses palpable. RECTAL EXAM: n ot done. MALE GENITOURINARY: n o penile lesions or discharge, testes descended bilaterally, no testicular mass. EXTREMITIES: n o clubbing, cyanosis, or edema. NEUROLOGIC: n onfocal, motor strength normal upper and lower extremities, sensory exam intact. Assessment: * Assessment: 1. A dult general medical examination - Z00.00 (Primary) 2 . S eizure - R56.9 Plan: * Treatment: 2. S eizure Notes: referral to neurology [facility] [place] had been on meds in past. have explained that he should not drive for 6 months after having a seizure Referral To:Ladonna Britt Neurology Reason:Seizure * Procedure Codes: * Follow Up: Alicia hortensia: is moving to [place] * * Sign off status: Completed true * Provider: Ellyn Wolff MD Date: 0 04/18/2025 Generated for Deb regan/Elvia/Alvaradoitting on: 1 12/05/2024 04:34 PM EST History and Physical Notes * HPI (History of Present Illness) Category Sub-Category Detail Notes Category Not es Symptom(s) patient is a 34 yo male here for annual visit with review of recent labs and follow up of chronic issues had question of seizure. last week. eyes rolled back and was staring. not responsive. went to sleep last seizure was 10 years ago. had 2 days in a row. Depression Screening PHQ-9 Little inte rest or pleasure in doing things: Several days Feeling down, depressed, or hopeless: Se veral days Trouble falling or staying asleep, or sl eeping too much: Several days Feeling tired or having little energy: N early every day Poor appetite or overeating: Nearly ever y day Feeling bad about yourself o r that you are a failure, or have let yourself or your family down: Nearly every day Trouble concentrating on thi ngs, such as reading the newspaper or watching television: Several days Moving or speaking so slowly that other people could have noticed; or the opposite, being so fidgety or restless that you have been moving around a lot more than usual: Several days Thoughts that you would be b lexx off or of hurting yourself in some way: Not at all Total Score: 14 Interpretation: Moderate Depression Interpretation and Intervention Depression Thien aburto Findings: Negative Follow-Up for Depression: : review of PH Q-9 found negative result, no follow-up needed SDOH Questions SDOH Questions In the past year have you been worried about losing housing?: No In the past year have you or any family members you live with been unable to get any of the following when it was really needed? Check all that apply:: None Communication Needs Communication Needs Does the patient have a hearing impairment: No Does the patient have a vision impairmen t?: No Does the patient have a cognition impair ment?: No Examination Category Sub-Category Detail Notes Category Not es General Examination GENERAL APPEARANCE: well dev eloped, well nourished, in no acute distress HEAD: normocephalic, atrau matic EYES: pupils equal, round, reactive to light and accommodation, sclera non-icteric EARS: normal THROAT: clear NECK/THYROID: neck supple, full ra nge of motion, no cervical lymphadenopathy, no bruits HEART: regular rate and rhy thm, S1, S2 normal, no murmurs LUNGS: clear to auscultatio n bilaterally ABDOMEN: soft, nontender, non distended, bowel sounds present, normal, no organomegaly , no masses palpable NEUROLOGIC: nonfocal, motor stre ngth normal upper and lower extremities, sensory exam intact SKIN: warm and dry, no tc picious lesions EXTREMITIES: no clubbing, cyanosi s, or edema MALE GENITOURINARY: no penile lesions or discharge, testes descended bilaterally, no testicular mass RECTAL EXAM: not done ORAL CAVITY: mucosa moist Consultation Request Notes Referral Date Referring Provider Referred Provider Not es 04/18/2025 Lebron Wolff, Ladonna Gannon re
--- OUTSIDE RECORDS SUMMARY | 2025-06-10 10:15 | XMS_ITS ---
Author Organization Lebron Wolff MD Address [address] [place] [phone] Care Team Providers Care Recycle Worker Name Role Phone Lebron Wolff Primary [...] Status W/U Status Risk Notes Problem Anxiety (39712881) Anxiety (F41.9) Active confirmed Vital Signs Blood pressure systolic 102 mm Hg 06/10/20 25 Blood pressure diastolic 66 mm Hg 025 Height 69 in 06/10/2025 Weight 196 lbs 06/10/2025 BMI 28.94 kg/m2 06/10/2025 weight is down 7 pounds [facility] e 04-18-25 Encounters Encounter Location Date Provider Diagnosis Lebron Wolff MD [address] [place] [phone] 06/10/2025 Lebron Wolff Anxiety F41.9 Assessments Encounter [...] Provider Name:Lebron Melendez ier, 10/08/2025 02:00:00 PM, [address] [place] [address], [address] [place] [address], [phone], Provider Name:Lebron Melendez ier, 04/10/2026 08:00:00 AM, [address] [place] [address], [place] [address], [place], [place], [phone], Provider Name:Lebron harrellr, 04/22/2026 02:30:00 PM, [address] [place] [address], [address], [phone], Progress Notes * GARO, JamesOB:1990 ( 35 yo M)Acc No.[id number]:06/10/2025 Progress Notes Patient: Javier HASSAN Provider: Ellyn Wolff MD :1990 A ge:34 Y S ex:Male Date:06/10/2025 Address:[address] [place] [address] Subjective: * Chief Complaints: * A nxiety [...] 0 06/10/2025 Generated for Deb regan/Elvia/eTvigneshsmitting on: 12/05/2024 04:33 PM EST History and Physical [...]
--- NOTE | 2025-10-04 15:32 | A.OFFVIS_ITS ---
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 To review, he was diagnosed with epilepsy around the age of 6. He experienced seizure activity until approximately age 24 or 25 years of age. He did have a breakthrough seizure event in 2013 which has been for quite some time the last time he had had a seizure. He was living in [place] at that time and did have an MRI of the brain and EEG testing though he was not sure of the results from these. He could not recall any more specific diagnoses. He does note that at he had to be resuscitated and he was in critical care for weeks. It was not until age 6 that he started to develop known seizure activity. He believes that when he was younger, his seizures were characterized by staring events without any convulsions or abnormal movements. Prior seizure events were triggered by extreme stress or physical strain. He has in the past tried Tegretol and Carbatrol. He had breakthrough seizures on both these medications and was eventually placed on Dilantin. He tells me that he self discontinued the Dilantin in 2013 and has not been on any antiepileptics since. He can not recall the exact reason why he stopped the Dilantin but believes that it was because of adverse effects. He has not established care with a Neurology team since this time. At the time of our initial visit together on 07/17/2025, he explained that he was going through a divorce with his and was experiencing higher levels of stress. He did believe that he may have had a recurrent seizure event a few weeks prior to her visit. He recalls a sensation that his mind was drifting and a sensation of weakness and cold sweats. After he had this sensation, he can not recall any further events such as staring or abnormal movements. He did feel very tired, dizzy, and ?out of it? after this event. He denied any tongue biting or urinary incontinence. The event was not witnessed. At the time of his last visit, I ordered both an MRI of the brain with and without contrast as well as an EEG. His EEG performed 08/19/2025 was unremarkable. His MRI of the brain performed 09/24/2025 did show a slight asymmetry and prominent right temporal horn lateral ventricle probably related to volume loss of the right hippocampus/mesial temporal sclerosis. It was felt to be likely in origin. Today in follow up he tells me that since our last visit, he has had an increase in dizzy spells. He feels that they are occurring on average once daily and often times while he is at work and sitting at his desk. These episodes are not triggered by positional changes or Alves head movements. He feels somewhat of a wave coming over him of light-headedness and brain fog. This lasts about 1 hour. If he gets up and moves around he will be very imbalanced during these episodes. He does note that he has been working more over time and still has some added stress. Past medication trials: Carbitrol- Breakthrough seizures Tegretol-Breakthrough seizures Dilantin- Last med he had been on in the past. Worked well with the patient's self discontinued due to side effects. Seizure background information: Onset of seizures:6 years old Date of last seizure:2013 Seizure type:Staring episodes Aura/warning signs:Feeling of mind drifting Postictal period:Weakness and somnolence Triggers:Possibly stress Last brain imaging:Possibly 2013 Last EE Current medications:None Compliance with medications:N/A History of brain infection:No History of significant illness or hospitalization: Hospitalization and critical care shortly after History of stroke of brain bleed:No History of pre-term :No but did have a traumatic with resuscitation History of learning disability:Yes History of developmental delay:No History of IEP in school:Yes Years of schooling completed: Highschool and trade school Family history of seizure:No Driving status:Currently driving Family/social support: No Social/medical services within the home:No [facility] Medical History (Updated 10/07/25 @ 08:25 by Sana Schmitz CNP) Tiredness Insomnia Surgical History No pertinent past surgical history Family History Mother Diabetes mellitus Heart disease Father COPD (chronic obstructive pulmonary disease) Social History Alcohol intake: never Patient Tobacco Use Status: Never used Tobacco Review of Systems Const All systems reviewed & are unremarkable except as noted in HPI and below Physical Exam Vital Signs: Last Vital Signs Pulse 78 10/04/25 15:37 Resp 16 10/04/25 15:37 BP 145/82 H 10/04/25 15:37 Pulse Ox 97 10/04/25 15:37 Oxygen Delivery Method Room Air 10/04/25 15:37 BMI result Body Mass Index 31.0 Const General: cooperative, healthy appearing, comfortable and no acute distress Nutritional Appearance: well nourished Orientation/consciousness: patient oriented x3 Limitations: no limitations HEENT Head: Yes normal to inspection and Yes normocephalic Eyes General: appearance normal, both eyes and all related structures Visual Bailey: normal visual bailey by confrontation Alignment and Position: alignment normal Periorbital: periorbital findings normal Eyelids: Yes eyelids normal Conjunctivae: conjunctivae normal Sclerae: sclerae normal Neuro General: patient oriented x3 and deep tendon reflexes 2+ bilaterally Cranial nerves: Yes CN's II-XII intact bilaterally and Yes Facial sensation intact/muscles of mastication intact Cognition (Neuro): normal cognition Gait exam (Neuro): Normal gait present Motor exam (neuro): 5/5 motor strength present throughout and no tremor noted Sensory Exam: double simultaneous stimulation for sensation normal Romberg Test: Negative Pupils: Normal pupillary reactivity/response: bilateral Psych Appearance: grossly normal Mental Status: mental status grossly normal Speech and movement: Normal speech and movement present and Clear speech present Affect: normal affect Attitude: cooperative Thought process: Normal thought process present Thought content: Normal thought content present Insight: Good insight present (Psych) Judgement: Good judgement present (Psych) Assessment & Plan Assessment & Plan (1) Seizure disorder: Code(s): G40.909 - Epilepsy, unspecified, not intractable, without status epilepticus Category: Medical (2) Mesial temporal sclerosis: Code(s): G93.81 - Temporal sclerosis Category: Medical Plan Javier is a 35-year-old male patient with a past medical history of traumatic and childhood seizures who presents to the clinic to establish care for seizure. He has a history of traumatic and at age 6 began having seizure events characterized as staring events. He was last on Dilantin but self- discontinued this in 2013 around the time of his last seizure event. His prior workups in diagnosis were completed in [place] and he has not established care with any Neurology team in the area. He is currently going through divorce and under higher levels of stress. He believes that he may have had a seizure event a few months back but this was not a witnessed event. He is currently now having more lightheadedness/dizzy spells which seemingly are unprovoked and occurring nearly every day now. His EEG was unremarkable however his MRI of the brain did show likelihood of right mesial temporal sclerosis. Because of his MRI findings and symptoms, I think it would be reasonable to start him on an antiepileptic. Based on his prior medication trials and other factors, as well as in-depth review of options with the patient, we have decided to pursue a trial of levetiracetam 500 mg twice daily. He was educated on common side effects, when to seek medical attention, and expectations moving forward. -start levetiracetam 500 mg twice daily -follow up in 2 months or sooner if needed Medications: New levetiracetam 500 mg PO BID 60 tabs 5RF 30 days Coding Level of Care Code Est Pt Level 4 (28046) Diagnoses Seizure disorder G40.909 Mesial temporal sclerosis G93.81
[2025-10-04 15:37] VITALS: BP 145/82; PULSE 78; RESP 16; O2SAT 97; BMI 31.0
--- OUTSIDE RECORDS SUMMARY | 2025-10-04 16:34 | XMS_ITS | Clinical Summary ---
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
--- OUTSIDE RECORDS SUMMARY | 2025-10-04 16:34 | XMS_ITS | Patient Health Record ---
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 For additional information, please refer to https://education.[employer].com/faq/F AQ165 (This link is being provided for informational/educatio nal purposes only.) (Note) This test was developed and its analytical performance characteristics have been determined by [facility]. It has not been cleared or approved by the FDA. This assay has been validated pursuant to the CLIA regulations and is used for clinical purposes. Testosterone, Free 60.4 35.0-155.0 pg/mL (Note) This test was developed and its analytical performance characteristics have been determined by [facility]. It has not been cleared or approved by the FDA. This assay has been validated pursuant to the CLIA regulations and is used for clinical purposes. [facility] [address] [address],[address] [facility] [address] Krzysztof Tai MD, PhD THIS TEST WAS PERFORMED AT: [facility] [address] [address] [address] [place] [address] KRZYSZTOF TAI MD,PHD XR chest 2V Reviewed date:02/15/2025 04:58:32 PM Interpretation: Performing Lab: Notes/Report: [address] [address] XRay Report Signed Patient: Javier Kirby MR#: [id number] : 1990 Acct:[id number] Age/Sex: 34 / M ADM Date: 02/15/25 Loc: HO.XRAY Attending Dr: Lebron Wolff MD Ordering Physician: Lebron Wolff MD Date of Service: 02/15/25 Procedure(s): XR chest 2V Accession Number(s): [id number] cc: Lebron Wolff MD EXAMINATION: XR CHEST [...] 02/15/25 1425 DD/ 1401 TD/TT: 02/15/25 1409 Bi Lead: [address] [address] XRay Report Signed Patient: Javier Kirby MR#: [id number] : 1990 Acct:[id number] Age/Sex: 34 / M ADM Date: 02/15/25 Loc: HO.XRAY Attending Dr: Lebron Wolff MD Ordering Physician: Lebron Wolff MD Date of Service: 02/15/25 Procedure(s): XR tahmina st 2V Accession Number(s): [id number] cc: Lebron Wolff MD EXAMINATION: XR CHEST [...] 02/15/25 1425 DD/ 1401 TD/TT: 02/15/25 1409 Bi Lead: Urinalysis and Microscopic Reviewed date:04/16/2025 12:34:30 PM Interpretation: Performing Lab:[facility], [address] [place] [phone] Notes/Report: Color Urine Yellow Appearance Urine Clear PH 6.5 5.0-9.0 Glucose Urine UA Negative Negative mg/dL Urine Blood Negative Negative Specific [place] - Urine 1.010 1.005-1.025 Urine Protein Negative Neg-Trace mg/dL Urine Ketones Negative Negative mg/dL Nitrite Urine Negative Negative Leukocyte Esterase Urine Negative Negative RBC Urine 0-2 0-2 /HPF WBC Urine 0-5 0-5 /HPF Squamous Epithelial Cell Urine 0-2 0-2 /HPF Bacteria Urine None Seen None Seen Hyaline Casts Urine 0-2 0-2 /LPF Comprehensive Met. Panel Reviewed date:04/16/2025 04:47:31 PM Interpretation: Performing Lab:[facility], [address] [place] [phone] Notes/Report: Sodium 142 135-145 mmol/L Potassium 3.8 [...] 3.5-5.0 g/dL Alkaline Phosphatase 51 39-117 U/L MR head/brain wo/w con Reviewed date:09/25/2025 02:27:30 PM Interpretation: Performing Lab: Notes/Report: [address] [address] Magnetic Resonance Report Signed Patient: Javier Kirby MR#: [id number] : 1990 Acct:[id number] Age/Sex: 35 / M ADM Date: 09/24/25 Loc: HO.MRI Attending Dr: Sana Schmitz CNP Ordering Physician: Sana Schmitz CNP Date of Service: 09/24/25 Procedure(s): MR head/brain wo/w con Accession Number(s): [id number] cc: Sana Schmitz CNP; Lebron Wolff MD Reason for Exam: G40.909 - Epilepsy, unspecified, not intractable, without status epilept... EXAMINATION: MR BRAIN WITHOUT AND WITH CONTRAST CLINICAL INFORMATION: G 40.909. Epilepsy. COMPARISON: None available. TECHNIQUE: Multiplanar, multisequence MRI of the brain was obtained before and after the intravenous administration of 9.0 mL gadolinium based without reported immediate complications.. FINDINGS: No restricted diffusion. No acute intracranial hemorrhage, mass effect, midline shift, hydrocephalus or herniation. Steele-white matter differentiation is normal. Posterior cranial fossa contents demonstrated no signal abnormality or mass effect. Sellar/suprasellar region is normal. Craniocervical junction is intact with normal position of the cerebellar tonsils. No signal abnormality or enhancing lesion in the hippocampi. Slight asymmetric right temporal horn lateral ventricle. Flow-void signal within the main cerebral vessels is normal. There appears to be absent right P1 segment with a robust right posterior communicating artery.. No intra-axial or extra-axial enhancing mass. 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 Correlated clinical scenario. 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 Electronically signed by: Hugh Tate MD 09/25/2025 08:16 AM EST Dictated By: Hugh Milton MD Signed By: <Electronically signed by Hugh Dunn MD in OV> 09/25/25 0816 DD/ 1552 TD/TT: 09/24/25 1616 Bi Lead: [address] [address] Magnetic Resonance Report Signed Patient: Javier Kirby MR#: [id number] : 1990 Acct:[id number] Age/Sex: 35 / M ADM Date: 09/24/25 Loc: HO.MRI Attending Dr: Hi Schmitz CNP Ordering Physician: Sana Schmitz CNP Date of Service: 09/24/25 Procedure(s): MR head/brain wo/w con Accession Number(s): [id number] cc: Hi Schmitz CNP; Lebron Wolff MD Reason for Exam: G40.909 - Epilepsy, unspecified, not intractable, without status epilept... EXAMINATION: MR BRAIN WITHOUT AND WITH CONTRAST CLINICAL INFORMATION: G 40.909. Epilepsy. COMPARISON: None available. TECHNIQUE: Multiplanar, multisequence MRI of the brain was obtained before and after the intravenou s administration of 9.0 mL gadolinium based without reported immediate complications.. FINDINGS: No restricted diffusion. No acute intracrania l hemorrhage, mass effect, midline shift, hydrocephalus or herniation. Steele-white matter differentiation is normal. Posterior cranial fo ssa contents demonstrated no signal abnormality or mass effect. Sellar/suprasellar region is normal. Craniocervical junct ion is intact with normal position of the cerebellar tonsils. No signal abnormalit y or enhancing lesion in the hippocampi. Slight asymmetric right temporal horn lateral ventricle. Flow-void signal wit hin the main cerebral vessels is normal. There appears to be absent right P1 segment with a robust right posterior communicating artery.. No intra-axial or extra-axial enhancing mass. 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 Correlated clinical scenario. 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 Electronically kelby d by: Hugh Tate MD 09/25/2025 08:16 AM EST Dictated By: Hugh Butcher MD Signed By: <Electronically signed by Hugh Dunn MD in OV> 09/25/25 0816 DD/ 1552 TD/TT: 09/24/25 1616 Bi Lead: Reason For Referral Reason Seizure Diagnosis 1 Seizure (R56.9) Referral Organization Lebron Wolff MD Referring Provider First Name Lebron Referring Provider Last Name New Referring Provider Speciality Internal M edicine Referred Provider Ladonna rBitt Referred Provider Specialty Neurology General Notes Amanda [...] Problem Status W/U Status Risk Notes Problem [id number] Lymphocytosis (D72.820) Active confirmed Problem Anxiety (16232111) Anxiety (F41.9) Active confirmed Problem Disorder of lumbar disc (411405321) Lumbar disc disease (M51.9) Active confirmed Problem 94533816 Dysthymia (F34.1) Active confirmed Problem 216659059 Gastroesophageal reflux disease with esophagitis without hemorrhage (K21.00) Active confirmed Problem 39608780 Anxiety, general ized (F41.1) Active confirmed Vital [...] Lebron Wolff MD [address] [place] [id number] 12/21/2024 Lebron Wolff Follow-up exam Z09 and Anxiety, generalized F41.1 Lebron Wolff MD [address] [place] [id number] 02/15/2025 Lebron Wolff Pneumonia J18.9 and Lethargy R53.83 Lebron Wolff MD [address] [place] [id number] 04/18/2025 Lebron Wolff Seizure R56.9 and Adult general medical examination Z00.00 Lebron Wolff MD [address] [place] [id number] 06/10/2025 Lebron Wolff Anxiety F41.9 Lebron Wolff MD [address] [place] [id number] 12/17/2024 Lebron Wolff Assessments Encounter Date Diagnosis [...] cpontact office if sx's do not improve 04/18/2025 Seizure (ICD-10 - R56.9) referral to neurology [facility]. had been on meds in past. have explained that he should not drive for 6 months after having a seizure 04/18/2025 Adult general medical examination (ICD-10 - Z00.00) labs reviewed and discussed with patient 06/10/2025 Anxiety (ICD-10 - F41.9) patient verbalized understanding of medication and directions for use Plan Of Treatment Pending Test Test Name Order Date XR CHEST 2 VIEW PA & LAT 06/12/2024 XR CHEST 2 VIEW PA & LAT 02/15/2025 XR GI SERIES 12/09/2022 Next Appt Details Provider Name:Lebron yi, 10/08/2025 02:00:00 PM, [address] [place] [address], [address] [address], [place], [place], [phone], Provider Name:Lebron harrellr, 04/10/2026 08:00:00 AM, [address] [place] [address], [address] [address], [place], [place], [phone], Provider Name:Lebron harrellr, 04/22/2026 02:30:00 PM, [address] [place] [address], [address] [address], [place], [place], [phone], Insurance Providers Payer Name Payer Address Payer Phone Subscriber Number Group Number Insured Name Patient Relationship to Insured Coverage Start Date Coverage End Date [facility] [address] [place] [phone] [id number] Javier Kirby Self - patient is the insured Medical (General) History Medical History History ICD Code history of petit mal and gran mal. [place]
== END 2025-10-04 16:01 | disposition home or self-care (01) ==
LOC: HO.HSM 15:30
PROVIDERS: PCP Internal Medicine; Visit Provider Nurse Practitioner
DX: G40.909 Epilepsy, unspecified, not intractable, without status epilepticus (principal); G93.81 Temporal sclerosis
CPT/HCPCS: 99214

== ENCOUNTER → 2025-10-04 15:29 | Outpatient (BNVA) | payer OTHER, SELFPAY | PROVIDERS: PCP Internal Medicine; Visit Provider Nurse Practitioner | DX: G40.909 Epilepsy, unspecified, not intractable, without status epilepticus (principal); G93.81 Temporal sclerosis; R42 Dizziness and giddiness | CPT/HCPCS: 99212 ==